=== PATIENT | male | born 1945 ===

== ENCOUNTER 2020-12-11 12:07 | Inpatient (IN) | payer OTHER ==
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
--- OUTSIDE RECORDS SUMMARY | 2020-12-12 18:03 | XMS REPORT | Continuity of Care Document ---
:1945 Author Organization [facility] t Address [address] [place] [address] Care Team Providers Name Role Phone Unavailable Unavailable Unavailable Problems This patient has no known problems. Allergies, Adverse Reactions, Alerts This patient has no known allergies or adverse reactions. Medications This patient has no known medications. Procedures This patient has no known procedures. Encounters Start End Encounter Admission Attending Care Care Encounter Source Date/Time Date/Time Type Type Clinicians Facility Department ID 2020-12-05 Inpatient E [facility] [id number] [facility] 12:52:00 Results This patient has no known results.
[2020-12-12 18:13] VITALS: BMI 33.4
[2020-12-12] MEDS: ATORVASTATIN 40 MG TAB PO SCH (19:21)
[2020-12-12] MEDS: MELATONIN 3 MG TABLET PO PRN (19:21)
[2020-12-13 07:00] LABS: Absolute Lymphocytes (CBC) 1.5 K/uL (0.7-4.9); Basophils % 0.6 % (0-1.3); Hematocrit 38.1 % (39.6-49.0); Lymphocytes % 17.8 % (15.3-44.8); MPV 8.8 fL (7.6-11.3); RBC Red Blood Cell Count 4.34 M/uL (4.33-5.43)
[2020-12-13 07:22] LABS: Albumin 3.3 g/dL (3.4-5.0); Magnesium 2.1 mg/dL (1.8-2.4); Potassium 4.5 mmol/L (3.5-5.1); Prealbumin 26.9 mg/dL (20-40)
[2020-12-13] MEDS ORDERED: LIDOCAINE 4% PATCH TOP SCH (08:00)
[2020-12-13] MEDS: lisinopriL 10 MG TAB PO SCH (08:00)
[2020-12-13] MEDS: ASPIRIN EC 81 MG TAB PO SCH (08:56)
--- NOTE | 2020-12-13 09:35 | P.RH.PN ---
Estimated Length of Stay: 21 Expected Discharge Date: 01/01/21 Discharge Disposition Plan: Home Family Support: Yes Intermediate Goal: Mobility, Transfers, Self Care Vital Signs: Last Vital Signs Temp 97.8 F 12/13/20 06:35 Pulse 60 12/13/20 06:35 Resp 16 12/13/20 06:35 BP 119/61 12/13/20 06:35 Pulse Ox 95 12/13/20 06:35 Laboratory: Laboratory Last Values WBC 8.20 K/uL (4.3-10.9) 12/13/20 06:44 RBC 4.34 M/uL (4.33-5.43) 12/13/20 06:44 Hgb 13.1 g/dL (13.6-17.9) L 12/13/20 06:44 Hct 38.1 % (39.6-49.0) L 12/13/20 06:44 MCV 87.7 fL (80-100) 12/13/20 06:44 MCH 30.2 pg (27.0-35.0) 12/13/20 06:44 MCHC 34.4 g/dL (32.0-36.0) 12/13/20 06:44 RDW 14.2 % (12.1-15.2) 12/13/20 06:44 Plt Count 166 K/uL (152-406) 12/13/20 06:44 MPV 8.8 fL (7.6-11.3) 12/13/20 06:44 Neutrophils % 71.3 % (41.7-73.7) 12/13/20 06:44 Lymphocytes % 17.8 % (15.3-44.8) 12/13/20 06:44 Monocytes % 8.8 % (3.3-12.3) 12/13/20 06:44 Eosinophils % 1.5 % (0-4.4) 12/13/20 06:44 Basophils % 0.6 % (0-1.3) 12/13/20 06:44 Absolute Neutrophils 5.8 K/uL (1.8-8.0) 12/13/20 06:44 Absolute Lymphocytes 1.5 K/uL (0.7-4.9) 12/13/20 06:44 Absolute Monocytes 0.7 K/uL (0.1-1.3) 12/13/20 06:44 Absolute Eosinophils 0.1 K/uL (0-0.5) 12/13/20 06:44 Absolute Basophils 0.0 K/uL (0-0.5) 12/13/20 06:44 Sodium 136 mmol/L (136-145) 12/13/20 06:44 Potassium 4.5 mmol/L (3.5-5.1) 12/13/20 06:44 Chloride 106 mmol/L (98-107) 12/13/20 06:44 Carbon Dioxide 26 mmol/L (21-32) 12/13/20 06:44 BUN 21 mg/dL (7-18) H 12/13/20 06:44 Creatinine 0.97 mg/dL (0.55-1.3) 12/13/20 06:44 Estimated GFR 76 mL/min (=/>90) L 12/13/20 06:44 Glucose 96 mg/dL (74-106) 12/13/20 06:44 Calcium 8.8 mg/dL (8.5-10.1) 12/13/20 06:44 Magnesium 2.1 mg/dL (1.8-2.4) 12/13/20 06:44 Albumin 3.3 g/dL (3.4-5.0) L 12/13/20 06:44 Prealbumin 26.9 mg/dL (20-40) 12/13/20 06:44 SARS-CoV-2 RNA (RT-PCR) Negative (NEGATIVE) 12/12/20 20:45 Weight: 220 lb Wound Present: No Physician Update: Blood work is pending. He has marked left arm and leg weakness. He has very poor truncal control. He requires max assistance for all ADL, transfers and mobilzation. He has mechanical soft diet and will get speech therapy. Summary: Patient's care plan and retirement goals have been reviewed and revised as necessary. Please see the Rehabilitation Signature page for all necessary signatures.
[2020-12-13] MEDS: ACETAMINOPHEN 500 MG TAB PO PRN ×2 (12:11→20:33)
--- NOTE | 2020-12-13 13:06 | PAPE ---
POST ADMISSION PHYSICIAN EVALUATION PATIENT: [facility] MR# [id number] REFERRING DOCTOR madeline Horton EVALUATION DATE AND TIME 12/13/2020 13:05 (CDT) NAME NIKHIL RICK DATE OF 1945 AGE 75 PHONE ( SSN# [id number] GENDER male EVALUATING PHYSICIAN Dr. Leonel Schmitz M.D. ADMISSION DIAGNOSIS: ACUTE ISCHEMIC RIGHT MCA STROKE ONSET DATE 12/05/2020 POST-ADMISSION FUNCTIONAL/MEDICAL STATUS: - Bladder Same accident frequency: 7-Ind - No accidents in the past 7 days - Bowel Same accident frequency: 7-Ind - No accidents in the past 7 days - Walking Same score based on distance walked: 0(N/A) - Wheelchair Same score based on distance traveled: 0(N/A) STATUS CHANGE EVALUATION: No change in Functional or Medical Status is identified compared with Pre-Admission screening. PATIENT NEEDS CLOSE MEDICAL SUPERVISION BY A REHABILITATION PHYSICIAN FOR: Coordination of Treatment Team PATIENT REQUIRES 24X7 REHAB NURSING FOR MEDICAL AND FUNCTIONAL MGT. OF THE FOLLOWING DEFICITS: Disease Management Medication Management Patient/Family Education Providing Safe Environment PATIENT REQUIRES INTENSIVE, COORDINATED INTERDISCIPLINARY APPROACH TO REHAB: Arranging Home Equipment/Services Discharge Planning Family Intervention/Training Bailiff/Case Management LIST OF IDENTIFIED AND POTENTIAL PROBLEMS: Alteration in leisure activities Bladder, Incontinence Bowel, Incontinence Infection, Actual or Potential Mobility Impaired Pain, Alteration in Comfort Self Care Deficit Skin Integrity, Actual or Potential Urinary Tract Infection (UTI), Actual or Potential PATIENT COULD BE AT RISK FOR COMPLICATIONS FROM ADVERSE MEDICAL CONDITIONS DUE TO HIS/HER COMORBIDITI ES AND THE RIGORS OF THE INTENSIVE REHABILLITATION PROGRAM. METHODS OR INTERVENTIONS TO AVOID COMPLIC ATIONS INCLUDE: - Bleeding Stroke patients assessed for lethargy or change in status. - Infection Clinical staff to assess and manage the signs and symptoms of infection including fever, redness, war mth, etc. - Urinary Tract Infection - Aspiration Clinical staff will assess and manage coughing, drooling, congestion. - Falls Patient will be evaluated for Fall Precautions and will be placed on Fall Precautions as indicated pe r protocol. - Skin Breakdown Nursing will assess skin daily using assessment tool and will place on Skin Breakdown Precautions as indicated per protocol. - Pain Clinical staff may employ non-medication methods such as massage, distraction, decrease stimulus, etc . as needed. Clinical staff will assess patient's pain level every shift per protocol to assess and e nsure pain management effectiveness. Medications will be given and the pain level re-assessed. PRELIMINARY PLAN OF CARE: - Physical Therapy Patient needs Physical Therapy for a daily minimum of 1.5 hours at least 5 out of 7 days, to improve: Mobility, Strengthening, Transfers, Stretching, ROM, Endurance, Ability to manage stairs, Gait, and Balance. - Speech Therapy Patient needs Speech Therapy for a daily minimum of 0.5 hours at least 5 out of 7 days, to improve: S wallowing, Cognition, Language Skills, and Compensatory Strategies. - Rehabilitation Nursing Patient requires 24x7 Rehabilitation Nursing for: Pain Issues, Identifying and preventing risk factor s, Monitoring and reporting current medical conditions, Assisting with ambulation and transfer, Idris ting with all ADL-s, Teaching patients about disease process and medications, Family teaching, Provid ing safe environment, Bowel and Bladder Issues, Skin Integrity, and Medication Management. Patient needs Bailiff and/or Case Management for: Discharge Planning, Arranging Home Equipmen t or Services, and Family Interventions. - Dietary and Nutrition Services Patient needs Dietary and Nutrition Services for: Adequate Nutrition, Nutritional Supplements, and Nu tritional Education. - Occupational Therapy Patient needs Occupational Therapy for a daily minimum of 1.5 hours at least 5 out of 7 days, to impr ove Activities of Daily Living, including: Eating, Grooming, Bathing, Dressing, Toileting, Toilet Tra nsfers, Community Reintegration, Higher functional activities, Adaptive Equipment, Splinting, Househo ld Tasks, and Other activities as determined. QI SCORES: - Self-Care A. Eating 03-Partial/moderate assistance B. Oral hygiene 03-Partial/moderate assistance C. Toileting hygiene 02-Substantial/maximal assistance E. Shower/bathe self 02-Substantial/maximal assistance F. Upper body dressing 03-Partial/moderate assistance G. Lower body dressing 02-Substantial/maximal assistance H. Putting on/taking off footwear 88-Not attempted due to medical condition or safety concerns - Mobility A. Roll left and right 03-Partial/moderate assistance B. Sit to lying 03-Partial/moderate assistance C. Lying to sitting on side of bed 02-Substantial/maximal assistance D. Sit to stand 02-Substantial/maximal assistance E. Chair/aoz-qu-oybsl transfer 02-Substantial/maximal assistance F. Toilet transfer 02-Substantial/maximal assistance G. Car transfer 88-Not attempted due to medical condition or safety concerns I. Walk 10 feet 88-Not attempted due to medical condition or safety concerns J. Walk 50 feet with two turns 88-Not attempted due to medical condition or safety concerns K. Walk 150 feet 88-Not attempted due to medical condition or safety concerns L. Walking 10 feet on uneven surfaces 88-Not attempted due to medical condition or safety concerns M. 1 step (curb) 88-Not attempted due to medical condition or safety concerns N. 4 steps 88-Not attempted due to medical condition or safety concerns O. 12 steps 88-Not attempted due to medical condition or safety concerns P. Picking up object 88-Not attempted due to medical condition or safety concerns R. Wheel 50 feet with two turns 88-Not attempted due to medical condition or safety concerns S. Wheel 150 feet 88-Not attempted due to medical condition or safety concerns - Bladder and Bowel Bladder continence Bowel continence - Endurance Fair - Balance Fair - Safety Awareness Fair POTENTIAL FUNCTIONAL GOALS FOR PATIENT TO ACHIEVE BY DISCHARGE: - Safety Precaution Patient will remain free from falls or injury at time of discharge. - Bed Mobility Patient will perform bed mobility at 4-Nakia level of assistance. - Transfers Patient will complete transfers from bed to chair at 4-Nakia level of assistance. - Mobility Patient will ambulate 150 ft with 4-Nakia level of assistance with RW. PATIENT REHAB POTENTIAL All RICK is able and expected to receive 3 hours of individualized therapy daily on at least 5 of irwin ry 7 days All Blue prognosis for significant practical improvement within a reasonable period of time appears Good Expected level of measurable improvement will be of a practical value to All RICK's functional capaci ty or adaptations to impairments Has a viable Discharge Plan Medically appropriate; condition is sufficiently stable to participate in intensive rehab program DISCHARGE PLAN: - Estimated Length of Stay (days) 17. - Consensus on plan Discharge plan has been discussed with primary caregiver. Patient/Family is in agreement with the radha n. Primary caregiver is in agreement with the plan. - Patient/Family Goals Return home independently. - Planned Living Setting Upon Discharge Home, to live alone. Transitional Living. Primary caregiver: Pt self. CONCLUSION ON REHABILITATION NECESSITY: I have evaluated patient's pre-admission functional status and, comparing it to the patient's post-ad mission functional status now, I conclude that the pre-admission assessment was accurate. Patient's c ondition on admission supports the medical necessity of admission to IRF. It is safe to proceed with patient's therapy program. SIGNATURE PANEL: (CDT)
--- NOTE | 2020-12-13 13:06 | R.HP ---
HISTORY AND PHYSICAL FACILITY: [facility] ENCOUNTER DATE AND TIME: 12/13/2020 12:57 (CDT) MR#: [id number] NAME NIKHIL RICK ADDRESS: [address] [place] [address] CITY: [facility] [address]IP [id number] PHONE: ( DATE OF : 1945 AGE: 75 SSN# [id number] GENDER: Male MARITAL STATUS PRE-HOSPITAL LIVING SETTING 01 - Home (private home/apt. board/care, assisted living, mcc, transitional living) PRE-HOSPITAL LIVING WITH Alone ENCOUNTER PHYSICIAN: Dr. Leonel Schmitz M.D. REFERRING DOCTOR: madeline Horton DATE OF ADMISSION: 12/12/2020 17:59 (CDT) REFERRING FACILITY [facility] HOME TYPE AND DETAILS: Type of home: single family house # of steps within the residence: 0 # of levels in the residence: 1 # of steps to enter the residence: 0 ONSET DATE: 12/05/2020 PRIMARY DIAGNOSIS-RELATED SURGERIES: CEREBRAL ANGIOGRAM HISTORY OF PRESENT ILLNESS (HPI): Pt. is a 75 yo Right-handed male. On 12/05/2020 Pt. presented to [facility] with sudden onset of right-side weakness. On 12/05/2020 he was admitted to [facility] with diagnosis ACUTE ISCHEMIC RIGHT MCA STROKE. His impairment category is Stroke 01 - Right Body (Left Brain) (01.2). Pre-morbidly, Pt. was independent/mod-I in Locomotion, Safety Awareness, Self-Care, and Communication ; and he had good Endurance and Social Cognition. Currently, he has deficits of Locomotion, Safety Awareness, Balance, Transfers Control, Sphincter Con trol, Self-Care, Communication, and Endurance. Pt. is now referred to [facility] for acute in-patient rehabilitation in order to maximize patient's functional independence in activities of daily living, strength, ROM, and mobi lity. Patient has realistic goal of being discharged at assistance level 7-Ind to reside at Home with Pt s elf. MEDICATION ALLERGIES: No Known Drug Allergies (NKDA) ENVIRONMENTAL ALLERGIES: - Substance Allergies None Known - Other Allergies None Known SOCIAL HISTORY: - Home Living Alone REVIEW OF SYSTEMS: - Gen No Chills Fatigue No Fever - Eyes No Double Vision No itchiness - ENMT Difficulty Swallowing - CVS No Chest Discomfort No Chest Pain Fatigue No Weight Gain - Resp No Cough No Shortness of Breath - GI Continent Abdominal Pain No Constipation No Diarrhea - Continent No Kidney Pain No Painful Urination No Urinary Urgency - MSK No Joint Pain Muscle Cramps Stiffness - Skin No Itching No Rash No Suspicious Lesions - Neuro Coordination Difficulty Difficulty with Concentration No Memory Loss No Seizures Weakness - Psych Anxiety Depression No HIV Exposure No Persistent Infections No Seasonal Allergies - Endo No Cold/Heat Intolerance No Excessive Hunger No Excessive Thirst No Excessive Urination PHYSICAL EXAM - Gen Alert and awake Lying in bed No apparent distress Oriented to: person, time, and place - Skin No breakdown Normacephalic - Eyes No abnormalities - ENMT No abnormalities - Neck No abnormalities - CVS RRR - Chest Clear - Abd Mild shifting right mid quadrant pain. No guarding or rebound. - GI Soft Deferred - No abnormalities - Ext Mild left upper and lower extremity edema. - MSK 0-1+/5 weakness in left upper and lower extremity. - Neuro 0-1/5 strength left upper and lower extremities. - Psych Mild depression. VITAL SIGNS Temperature: 97.8 F SBP/DBP: 108/63 Pulse: 72 Resp: 15 NURSING: - Shower allowing shower - Bladder care per protocol - Skin care per protocol PRECAUTIONS: - Weight Bearing Precaution WBAT left LE ACTIVITIES OOB only with supervision QI SCORES: - Self-Care A. Eating 03-Partial/moderate assistance B. Oral hygiene 03-Partial/moderate assistance C. Toileting hygiene 02-Substantial/maximal assistance E. Shower/bathe self 02-Substantial/maximal assistance F. Upper body dressing 03-Partial/moderate assistance G. Lower body dressing 02-Substantial/maximal assistance H. Putting on/taking off footwear 88-Not attempted due to medical condition or safety concerns - Mobility A. Roll left and right 03-Partial/moderate assistance B. Sit to lying 03-Partial/moderate assistance C. Lying to sitting on side of bed 02-Substantial/maximal assistance D. Sit to stand 02-Substantial/maximal assistance E. Chair/[id number] transfer 02-Substantial/maximal assistance F. Toilet transfer 02-Substantial/maximal assistance G. Car transfer 88-Not attempted due to medical condition or safety concerns I. Walk 10 feet 88-Not attempted due to medical condition or safety concerns J. Walk 50 feet with two turns 88-Not attempted due to medical condition or safety concerns K. Walk 150 feet 88-Not attempted due to medical condition or safety concerns L. Walking 10 feet on uneven surfaces 88-Not attempted due to medical condition or safety concerns M. 1 step (curb) 88-Not attempted due to medical condition or safety concerns N. 4 steps 88-Not attempted due to medical condition or safety concerns O. 12 steps 88-Not attempted due to medical condition or safety concerns P. Picking up object 88-Not attempted due to medical condition or safety concerns R. Wheel 50 feet with two turns 88-Not attempted due to medical condition or safety concerns S. Wheel 150 feet 88-Not attempted due to medical condition or safety concerns - Bladder and Bowel Bladder continence Bowel continence - Endurance Fair - Balance Fair - Safety Awareness Fair CURRENT FUNC. DEFICITS: Self-Care, Mobility, Endurance, Balance, and Safety Awareness MEDICATIONS: - Other See attached MAR (Medication Administration Record) ASSESSMENT: Pt. is a 75 yo Right-handed male.On 12/05/2020 Pt. presented to [facility] with sudden onset of right-side weakness.On 12/05/2020 he was admitted to [facility] with diagnosis ACUTE ISCHEMIC RIGHT MCA STROKE.His impairment category is Stroke 01 - Right Body (Left Brain) (01.2).Pre-morbidly , Pt. was independent/mod-I in Locomotion, Safety Awareness, Self-Care, and Communication; and he had good Endurance and Social Cognition.Currently, he has deficits of Locomotion, Safety Awareness, [place] nce, Transfers Control, Sphincter Control, Self-Care, Communication, and Endurance.Pt. is now referre d to [facility] for acute in-patient rehabilitation in order to maximize patie nt's functional independence in activities of daily living, strength, ROM, and mobility.- Rehab Goal Patient has realistic goal of being discharged at assistance level 7-Ind to reside at Home with Pt s elf. for Dementia, TBI, Stroke, or others - Physical Therapy Gait dysfunction - to improve, our physical therapists will perform initial evaluation of pt's status upon admission and devise an individualized program for Gait Training, and Wheel Chair mobility Inability to transfer - to improve, our physical therapists will perform initial evaluation of pt's s tatus upon admission and devise an individualized program for Bed mobility Need for home safety evaluation - to improve, our physical therapists will perform initial evaluation of pt's status upon admission and devise an individualized program for Home Evaluation Need in caregiver upon discharge - to improve, our physical therapists will perform initial evaluatio n of pt's status upon admission and devise an individualized program for Caregiver Training New precaution - to improve, our physical therapists will perform initial evaluation of pt's status u vasiliy admission and devise an individualized program for Patient precaution education Edema - to improve, our physical therapists will perform initial evaluation of pt's status upon admi ssion and devise an individualized program for Elevation Training, and Lymphedema Therapy Poor balance - to improve, our physical therapists will perform initial evaluation of pt's status upo n admission and devise an individualized program for Balance Training Poor endurance - to improve, our physical therapists will perform initial evaluation of pt's status u vasiliy admission and devise an individualized program for Endurance Training Weakness - to improve, our physical therapists will perform initial evaluation of pt's status upon ad mission and devise an individualized program for Aquatic Therapy, Neuromuscular Reeducation, and Stre ngthening Achieving independence - to improve, our physical therapists will perform initial evaluation of pt's status upon admission and devise an individualized program for Community Reintegration Activities - Occupational Therapy ADL deficits - to improve, our occupation therapists will perform initial evaluation of pt's status u vasiliy admission and devise an individualized program for Bathing, Bed mobility, Community Reintegration , Cooking, Dressing, Eating, Fine Motor Skills, Grooming, Homemaking, Kitchen Mobility, Laundry, Margie ent Education, Safety Awareness, Splinting - Positioning, Transfers(Toilet, Tub, Shower), and Wheel C hair Management Need for care rep - to improve, our occupation therapists will perform initial evaluation of pt's s tatus upon admission and devise an individualized program for Caregiver Training Weakness - to improve, our occupation therapists will perform initial evaluation of pt's status upon admission and devise an individualized program for Aquatic Therapy, Balance, Endurance, UE ROM, and U E strengthening MEDICAL PLAN: - Diet Type Start Regular - Diet - Liquid Texture Start Regular - Tube Feed Start N/A - Bladder care per protocol - Weight Bearing Precaution WBAT left LE WBAT left wrist - Skin care per protocol - Other See attached MAR (Medication Administration Record) - Diet - Solid Texture Regular - Shower shower DISCHARGE PLAN: - Estimated Length of Stay (days) 17. - Consensus on plan Discharge plan has been discussed with primary caregiver. Patient/Family is in agreement with the radha n. Primary caregiver is in agreement with the plan. - Patient/Family Goals Return home independently. - Planned Living Setting Upon Discharge Home, to live alone. Transitional Living. Primary caregiver: Pt self. SIGNATURE PANEL: (CDT)
--- NOTE | 2020-12-13 13:36 | RAD REPORT ---
EXAM DESCRIPTION: RAD - Abdomen 1 View (KUB) - 12/13/2020 1:23 pm CLINICAL HISTORY: Abdomen pain. FINDINGS: The bowel gas pattern is unremarkable. Multiple calcifications the pelvis presumably phleboliths. Curvilinear densities overlying left pelvis presumably overlying artifact and should be correlated cl inically
[2020-12-13] MEDS ORDERED: ENOXAPARIN 40 MG/0.4 ML SQ SCH (17:00)
[2020-12-13] MEDS: DULOXETINE 20 MG CAP PO SCH (20:33)
[2020-12-13] MEDS: ATORVASTATIN 40 MG TAB PO SCH (20:33)
[2020-12-13] MEDS: MELATONIN 3 MG TABLET PO PRN (20:33)
[2020-12-13] MEDS: ENOXAPARIN 40 MG/0.4 ML SQ SCH (20:33)
[2020-12-14] MEDS: ACETAMINOPHEN 500 MG TAB PO PRN ×2 (04:33→09:52)
[2020-12-14] MEDS: SIMETHICONE 80 MG TAB PO PRN (04:33)
[2020-12-14] MEDS: lisinopriL 10 MG TAB PO SCH (08:00)
[2020-12-14] MEDS: ASPIRIN EC 81 MG TAB PO SCH (08:22)
[2020-12-14] MEDS: LIDOCAINE 4% PATCH TOP SCH (08:22)
--- NOTE | 2020-12-14 17:11 | CON ---
Date of Consultation: 12/14/2020 Reason For Consultation: Critical aortic valve stenosis. History Of Present Illness: A 75-year-old male who was brought into rehab from [facility] after having a significant stroke with significant left-sided weakness. Echo was ordered by Dr. Schmitz and kaycee ramirez. The patient appears to have critical aortic valve stenosis with a mean gradient above 55 mmHg . I had a long discussion with the patient and his family on the recommendations for treatment. Past Medical History: Recent stroke, hypertension. Medication: Refer to reconciliation sheet for detailed list. Allergies: NO KNOWN DRUG ALLERGIES. Family History: No premature coronary artery disease. Social History: Does not drink or use any drugs. Review of Systems: All systems reviewed and they were negative except what was mentioned in the HPI. Physical Examination: Vital Signs: Temperature is 98.4, pulse is 74, breathing at 18, blood pressure is 120/64, saturating 97% on room air. General: Pleasant elderly male, in no apparent distress. Head and Neck: Pupils are equal, reactive to light. Intact eye movements. No JVD. No cervical lym phadenopathy. Neck: Supple. Thyroid is not enlarged. Lungs: Clear to auscultation bilaterally. No rhonchi, rales, or crackles. No accessory muscle use. Heart: Regular rate and rhythm with aortic systolic ejection murmur. Abdomen: Soft, nontender. Bowel sounds positive. No organomegaly. No masses or hernia. No rigidi ty or rebound. Extremities: No edema, clubbing, or cyanosis. Intact pulses. Skin: No rashes. Neurologic: Alert, awake with left-sided significant weakness, but he is oriented x3. Investigations: Creatinine 0.97. Hemoglobin 15.1. Assessment And Plan: Critical aortic valve stenosis: The patient appears to have critical aortic va lve stenosis with mean gradient of 55 mmHg. I had a long discussion with the patient and his family. The patient will need to have aggressive rehab post stroke. I would recommend doing an aortic valv e replacement as soon as possible to avoid any complications or decompensation. The son will have a discussion with the family and if a decision was made to proceed, we will plan for possible transfer for a transcatheter aortic valve replacement and then aggressive rehab afterwards. Thank you for the consult. /LYLA Voice ID: [id number] Report ID: [id number]
--- NOTE | 2020-12-14 18:57 | R.PN ---
PROGRESS NOTES ENCOUNTER DATE AND TIME: 12/14/2020 18:45 (CDT) NAME NIKHIL RICK DATE OF : 1945 DATE OF ADMISSION: 12/12/2020 17:59 (CDT) ACUTE ISCHEMIC RIGHT MCA STROKECHIEF COMPLAINT: Right MCA stroke, dense left arm and leg paresis, critical aortic stenosis. SUBJECTIVE: Pt denied any Shortness of Breath. Pt denied any depression. He is followed closely by cardiology and will have a cardiac cath next week. WBC 8.2, Hgb 13.1, Trust Clerk 0.97, prealbumin 26.9, COVID-19 negative. KUB shows no obstruction. Therapeutic exercises done with the 0-1/5 strength left upper and lower extremities. Self propelled wheelchair 255' with max assistance. VITAL SIGNS Temperature: 97.6 F SBP/DBP: 112/57 Pulse: 63 Resp: 16 MEDICATION ALLERGIES: No Known Drug Allergies (NKDA) ENVIRONMENTAL ALLERGIES: - Substance Allergies None Known - Other Allergies None Known NURSING: - Shower allowing shower - Bladder care per protocol - Skin care per protocol PRECAUTIONS: - Weight Bearing Precaution WBAT left LE ACTIVITIES OOB only with supervision THERAPIES: - Occupational Therapy Cognitive Retraining. Visual Perceptual Training. - Dietary and Nutrition Adequate Nutrition. Nutritional Education. Nutritional Supplements. - Speech Therapy Cognitive Training. Expressive Language Skills. Memory Strategies. Receptive Language Skills. Speech Intelligibility Training. PHYSICAL EXAM - Gen Alert and awake Lying in bed No apparent distress Oriented to: person, time, and place - Skin No breakdown Normacephalic - Eyes No abnormalities - ENMT No abnormalities - Neck No abnormalities - CVS RRR - Chest Clear - Abd Mild shifting right mid quadrant pain. No guarding or rebound. - GI Soft Deferred - No abnormalities - Ext Mild left upper and lower extremity edema. - MSK 0-1+/5 weakness in left upper and lower extremity. - Neuro 0-1/5 strength left upper and lower extremities. - Psych Mild depression. ASSESSMENT: Pt. is a 75 yo Right-handed male.On 12/05/2020 Pt. presented to [facility] with sudden onset of right-side weakness.On 12/05/2020 he was admitted to [facility] with diagnosis ACUTE ISCHEMIC RIGHT MCA STROKE.His impairment category is Stroke 01 - Right Body (Left Brain) (01.2).Pre-morbidly , Pt. was independent/mod-I in Locomotion, Safety Awareness, Self-Care, and Communication; and he had good Endurance and Social Cognition.Currently, he has deficits of Locomotion, Safety Awareness, Stew nce, Transfers Control, Sphincter Control, Self-Care, Communication, and Endurance.Pt. is now referre d to [facility] for acute in-patient rehabilitation in order to maximize patie nt's functional independence in activities of daily living, strength, ROM, and mobility.- Rehab Goal Patient has realistic goal of being discharged at assistance level 7-Ind to reside at Home with Pt s elf. MDM/PLAN: - Physical Therapy Gait dysfunction - to improve, our physical therapists will perform initial evaluation of pt's statu s upon admission and devise an individualized program for Gait Training, and Wheel Chair mobility Inability to transfer - to improve, our physical therapists will perform initial evaluation of pt's status upon admission and devise an individualized program for Bed mobility Need for home safety evaluation - to improve, our physical therapists will perform initial evaluatio n of pt's status upon admission and devise an individualized program for Home Evaluation Need in caregiver upon discharge - to improve, our physical therapists will perform initial evaluati on of pt's status upon admission and devise an individualized program for Caregiver Training New precaution - to improve, our physical therapists will perform initial evaluation of pt's status upon admission and devise an individualized program for Patient precaution education Edema - to improve, our physical therapists will perform initial evaluation of pt's status upon admis aleksandra and devise an individualized program for Elevation Training, and Lymphedema Therapy Poor balance - to improve, our physical therapists will perform initial evaluation of pt's status up on admission and devise an individualized program for Balance Training Poor endurance - to improve, our physical therapists will perform initial evaluation of pt's status upon admission and devise an individualized program for Endurance Training Weakness - to improve, our physical therapists will perform initial evaluation of pt's status upon a dmission and devise an individualized program for Aquatic Therapy, Neuromuscular Reeducation, and Str engthening Achieving independence - to improve, our physical therapists will perform initial evaluation of pt's status upon admission and devise an individualized program for Community Reintegration Activities - Occupational Therapy ADL deficits - to improve, our occupation therapists will perform initial evaluation of pt's status upon admission and devise an individualized program for Bathing, Bed mobility, Community Reintegratio n, Cooking, Dressing, Eating, Fine Motor Skills, Grooming, Homemaking, Kitchen Mobility, Laundry, Pat ient Education, Safety Awareness, Splinting - Positioning, Transfers(Toilet, Tub, Shower), and Wheel Chair Management Need for critical care paramedic - to improve, our occupation therapists will perform initial evaluation of pt's status upon admission and devise an individualized program for Caregiver Training Weakness - to improve, our occupation therapists will perform initial evaluation of pt's status upon admission and devise an individualized program for Aquatic Therapy, Balance, Endurance, UE ROM, and UE strengthening - Other See attached MAR (Medication Administration Record) - Diet Type Continue Regular - Diet - Liquid Texture Continue Regular - Tube Feed Continue N/A - Bladder care per protocol - Weight Bearing Precaution WBAT left LE WBAT left wrist - Skin care per protocol - Diet - Solid Texture Continue Regular - Shower allowing shower for Dementia, TBI, Stroke, or others FUNCTIONAL STATUS: UPDATED AT WEEKLY TEAM CONFERENCE - Bladder Same accident frequency: 7-Ind - No accidents in the past 7 days - Bowel Same accident frequency: 7-Ind - No accidents in the past 7 days - Walking Same score based on distance walked: 0(N/A) - Wheelchair Same score based on distance traveled: 0(N/A) FUNCTIONAL STATUS: - Self-Care A. Eating sup B. Grooming Nakia C. Bathing modA D. Dressing - Upper modA E. Dressing - Lower modA F. Toileting maxA - Sphincter Control G. Bladder control Nakia H. Bowel control Nakia - Transfers Control I. Bed/Chair/Wheelchair maxA J. Toilet maxA K. Tub/Shower maxA - Locomotion L. Walk/Wheelchair (B) maxA M. Stairs ADNO - Communication N. Comprehension (B) sup O. Expression (B) sup - Social Cognition P. Social Interaction sup Q. Problem Solving sup R. Memory sup - Endurance Poor - Balance Poor - Safety Awareness Poor QI SCORES: - Self-Care A. Eating 03-Partial/moderate assistance B. Oral hygiene 03-Partial/moderate assistance C. Toileting hygiene 02-Substantial/maximal assistance E. Shower/bathe self 02-Substantial/maximal assistance F. Upper body dressing 03-Partial/moderate assistance G. Lower body dressing 02-Substantial/maximal assistance H. Putting on/taking off footwear 88-Not attempted due to medical condition or safety concerns - Mobility A. Roll left and right 03-Partial/moderate assistance B. Sit to lying 03-Partial/moderate assistance C. Lying to sitting on side of bed 02-Substantial/maximal assistance D. Sit to stand 02-Substantial/maximal assistance E. Chair/rnr-nv-fzbvy transfer 02-Substantial/maximal assistance F. Toilet transfer 02-Substantial/maximal assistance G. Car transfer 88-Not attempted due to medical condition or safety concerns I. Walk 10 feet 88-Not attempted due to medical condition or safety concerns J. Walk 50 feet with two turns 88-Not attempted due to medical condition or safety concerns K. Walk 150 feet 88-Not attempted due to medical condition or safety concerns L. Walking 10 feet on uneven surfaces 88-Not attempted due to medical condition or safety concerns M. 1 step (curb) 88-Not attempted due to medical condition or safety concerns N. 4 steps 88-Not attempted due to medical condition or safety concerns O. 12 steps 88-Not attempted due to medical condition or safety concerns P. Picking up object 88-Not attempted due to medical condition or safety concerns R. Wheel 50 feet with two turns 88-Not attempted due to medical condition or safety concerns S. Wheel 150 feet 88-Not attempted due to medical condition or safety concerns - Bladder and Bowel Bladder continence Bowel continence - Endurance Fair - Balance Fair - Safety Awareness Fair CURRENT [facility]. DEFICITS: Self-Care, Mobility, Endurance, Balance, and Safety Awareness SIGNATURE PANEL: (CDT)
[2020-12-14] MEDS: MELATONIN 3 MG TABLET PO PRN (20:14)
[2020-12-14] MEDS: ENOXAPARIN 40 MG/0.4 ML SQ SCH (20:14)
[2020-12-14] MEDS: ATORVASTATIN 40 MG TAB PO SCH (20:14)
[2020-12-14] MEDS: DULOXETINE 20 MG CAP PO SCH (20:14)
[2020-12-15] MEDS: lisinopriL 10 MG TAB PO SCH (07:57)
[2020-12-15] MEDS: ASPIRIN EC 81 MG TAB PO SCH (07:58)
[2020-12-15] MEDS: LIDOCAINE 4% PATCH TOP SCH (07:58)
[2020-12-15] MEDS ORDERED: D5 0.45 NS 1,000 ML IV SCH (15:00)
[2020-12-15] MEDS ORDERED: GUAIFENESIN/CODEINE 5ML UCUP PO PRN (19:48)
[2020-12-15] MEDS: ENOXAPARIN 40 MG/0.4 ML SQ SCH (20:48)
[2020-12-15] MEDS: MEGESTROL 40 MG TAB PO SCH (20:48)
[2020-12-15] MEDS: DULOXETINE 20 MG CAP PO SCH (20:48)
[2020-12-15] MEDS: guaiFENesin 100 MG/5 ML UCUP PO PRN (20:48)
[2020-12-15] MEDS: ATORVASTATIN 40 MG TAB PO SCH (20:48)
[2020-12-15] MEDS: MELATONIN 3 MG TABLET PO PRN (20:48)
[2020-12-15] MEDS ORDERED: GUAIFENESIN/CODEINE 5ML UCUP PO SCH (21:00)
[2020-12-16 07:24] LABS: Protime INR 1.32
[2020-12-16] MEDS: LIDOCAINE 4% PATCH TOP SCH (07:34)
[2020-12-16] MEDS: guaiFENesin 100 MG/5 ML UCUP PO PRN (07:54)
[2020-12-16] MEDS: MEGESTROL 40 MG TAB PO SCH ×2 (07:55→21:32)
[2020-12-16] MEDS: ASPIRIN EC 81 MG TAB PO SCH (07:55)
[2020-12-16] MEDS: lisinopriL 10 MG TAB PO SCH (08:00)
--- NOTE | 2020-12-16 08:14 | ECHO ---
HEIGHT: 5 ft 8 in WEIGHT: 220 lb 0 oz DATE OF STUDY: 12/13/[address]: Danilo Daniels MD 2-DIMENSIONAL: YES M.MODE: YES DOPPLER: YES COLOR FLOW: YES TDS: NO PORTABLE: NO DEFINITY: NO BUBBLE STUDY: NO DIAGNOSIS: POSSIBLE HEART CATH, STROKE CARDIAC HISTORY: CATHERIZATION: SURGERY: PROSTHETIC VALVE: PACEMAKER: MEASUREMENTS (cm) DIASTOLIC (NORMALS) SYSTOLIC (NORMALS) IVSd 1.5 (0.6-1.2) LA Diam (1.9-4.0) LVEF 60-65% LVIDd 4.3 (3.5-5.7) LVIDs 2.6 (2.0-3.5) %FS 40% LVPWd 1.6 (0.6-1.2) Ao Diam 2.5 (2.0-3.7) 2 DIMENSIONAL ASSESSMENT: RIGHT ATRIUM: NORMAL LEFT ATRIUM: NORMAL RIGHT VENTRICLE: NORMAL LEFT VENTRICLE: NORMAL TRICUSPID VALVE: MITRAL VALVE: PULMONIC VALVE: AORTIC VALVE: PERICARDIAL EFFUSION: NONE AORTIC ROOT: NORMAL LEFT VENTRICULAR WALL MOTION: NORMAL DOPPLER/COLOR FLOW: SEE BELOW COMMENTS: NORMAL LEFT VENTRICULAR EJECTION FRACTION 60-65% WITH NORMAL WALL MOTION. CRITICAL AORTIC VALVE STENOSIS. MILD MITRAL, TRICUSPID AND PULMONARY REGURGITATION. TECHNOLOGIST: Brandon GUALLPA
[2020-12-16] MEDS ORDERED: HEPA 1000U/500MLS 2,000 UNIT/1,000 ML BAG IV ONE (10:27)
[2020-12-16] MEDS ORDERED: FENTANYL CITR 100 MCG/2 ML ONE (15:54)
[2020-12-16] MEDS ORDERED: MIDAZOLAM HCL 2 MG/2 ML INJ ONE (15:54)
[2020-12-16] MEDS ORDERED: HEPARIN 10,000 UNIT/10 ML VIAL IV ONE (16:21)
[2020-12-16] MEDS ORDERED: VERAPAMIL HCL 10 MG/4 ML VIAL IV ONE (16:21)
[2020-12-16] MEDS ORDERED: HEPARIN 5000 UNIT/ML 1 ML VIAL ONE (16:21)
[2020-12-16] MEDS ORDERED: NITROGLYCERIN 100 MCG/ML SYR (for cath lab use only) IV ONE (16:22)
[2020-12-16] MEDS ORDERED: ATROPINE SULF 1 MG/10 ML SYR IV ONE (16:22)
[2020-12-16] MEDS ORDERED: NITROGLYCERIN/D5W 25 MG/250 ML BTL IV ONE (16:22)
[2020-12-16] MEDS ORDERED: NA CHLORIDE 0.9% 500 ML ONE (16:24)
[2020-12-16] MEDS ORDERED: LIDOCAINE 1% MPF 5 ML VIAL ONE (16:44)
[2020-12-16] MEDS ORDERED: LIDOCAINE 1% 20 ML MDV ONE (17:24)
--- NOTE | 2020-12-16 18:18 | R.PN ---
PROGRESS NOTES ENCOUNTER DATE AND TIME: 12/16/2020 18:14 (CDT) NAME NIKHIL RICK DATE OF : 1945 DATE OF ADMISSION: 12/12/2020 17:59 (CDT) ACUTE ISCHEMIC RIGHT MCA STROKECHIEF COMPLAINT: Right MCA stroke, dense left arm and leg paresis, critical aortic stenosis. SUBJECTIVE: Pt denied any Shortness of Breath. Pt denied any depression. He is followed closely by cardiology and will have a cardiac cath next week. INR-1.32, WBC 8.2, Hgb 13.1, Breakdown Man 0.97, prealbumin 26.9, COVID-19 negative. KUB shows no obstruction. Therapeutic exercises done with the 0-1/5 strength left upper and lower extremities while in bed. A cardiac cath is scheduled for today prior to additional workup for treatment of critical aortic beatris nosis. VITAL SIGNS Temperature: 97.4 F SBP/DBP: 110/50 Pulse: 64 Resp: 16 MEDICATION ALLERGIES: No Known Drug Allergies (NKDA) ENVIRONMENTAL ALLERGIES: - Substance Allergies None Known - Other Allergies None Known NURSING: - Shower allowing shower - Bladder care per protocol - Skin care per protocol PRECAUTIONS: - Weight Bearing Precaution WBAT left LE ACTIVITIES OOB only with supervision THERAPIES: - Occupational Therapy Cognitive Retraining. Visual Perceptual Training. - Dietary and Nutrition Adequate Nutrition. Nutritional Education. Nutritional Supplements. - Speech Therapy Cognitive Training. Expressive Language Skills. Memory Strategies. Receptive Language Skills. Speech Intelligibility Training. PHYSICAL EXAM - Gen Alert and awake Lying in bed No apparent distress Oriented to: person, time, and place - Skin No breakdown Normacephalic - Eyes No abnormalities - ENMT No abnormalities - Neck No abnormalities - CVS RRR - Chest Clear - Abd Mild shifting right mid quadrant pain. No guarding or rebound. - GI Soft Deferred - No abnormalities - Ext Mild left upper and lower extremity edema. - MSK 0-1+/5 weakness in left upper and lower extremity. - Neuro 0-1/5 strength left upper and lower extremities. - Psych Mild depression. ASSESSMENT: Pt. is a 75 yo Right-handed male.On 12/05/2020 Pt. presented to [facility] with sudden onset of right-side weakness.On 12/05/2020 he was admitted to [facility] with diagnosis ACUTE ISCHEMIC RIGHT MCA STROKE.His impairment category is Stroke 01 - Right Body (Left Brain) (01.2).Pre-morbidly , Pt. was independent/mod-I in Locomotion, Safety Awareness, Self-Care, and Communication; and he had good Endurance and Social Cognition.Currently, he has deficits of Locomotion, Safety Awareness, [place] nce, Transfers Control, Sphincter Control, Self-Care, Communication, and Endurance.Pt. is now referre d to [facility] for acute in-patient rehabilitation in order to maximize patie nt's functional independence in activities of daily living, strength, ROM, and mobility.- Rehab Goal Patient has realistic goal of being discharged at assistance level 7-Ind to reside at Home with Pt s elf. MDM/PLAN: - Physical Therapy Gait dysfunction - to improve, our physical therapists will perform initial evaluation of pt's statu s upon admission and devise an individualized program for Gait Training, and Wheel Chair mobility Inability to transfer - to improve, our physical therapists will perform initial evaluation of pt's status upon admission and devise an individualized program for Bed mobility Need for home safety evaluation - to improve, our physical therapists will perform initial evaluatio n of pt's status upon admission and devise an individualized program for Home Evaluation Need in caregiver upon discharge - to improve, our physical therapists will perform initial evaluati on of pt's status upon admission and devise an individualized program for Caregiver Training New precaution - to improve, our physical therapists will perform initial evaluation of pt's status upon admission and devise an individualized program for Patient precaution education Edema - to improve, our physical therapists will perform initial evaluation of pt's status upon admi ssion and devise an individualized program for Elevation Training, and Lymphedema Therapy Poor balance - to improve, our physical therapists will perform initial evaluation of pt's status up on admission and devise an individualized program for Balance Training Poor endurance - to improve, our physical therapists will perform initial evaluation of pt's status upon admission and devise an individualized program for Endurance Training Weakness - to improve, our physical therapists will perform initial evaluation of pt's status upon a dmission and devise an individualized program for Aquatic Therapy, Neuromuscular Reeducation, and Str engthening Achieving independence - to improve, our physical therapists will perform initial evaluation of pt's status upon admission and devise an individualized program for Community Reintegration Activities - Occupational Therapy ADL deficits - to improve, our occupation therapists will perform initial evaluation of pt's status upon admission and devise an individualized program for Bathing, Bed mobility, Community Reintegratio n, Cooking, Dressing, Eating, Fine Motor Skills, Grooming, Homemaking, Kitchen Mobility, Laundry, Pat ient Education, Safety Awareness, Splinting - Positioning, Transfers(Toilet, Tub, Shower), and Wheel Chair Management Need for adult day care worker - to improve, our occupation therapists will perform initial evaluation of pt's status upon admission and devise an individualized program for Caregiver Training Weakness - to improve, our occupation therapists will perform initial evaluation of pt's status upon admission and devise an individualized program for Aquatic Therapy, Balance, Endurance, UE ROM, and UE strengthening - Other See attached MAR (Medication Administration Record) - Diet Type Continue Regular - Diet - Liquid Texture Continue Regular - Tube Feed Continue N/A - Bladder care per protocol - Weight Bearing Precaution WBAT left LE WBAT left wrist - Skin care per protocol - Diet - Solid Texture Continue Regular - Shower allowing shower for Dementia, TBI, Stroke, or others FUNCTIONAL STATUS: UPDATED AT WEEKLY TEAM CONFERENCE - Bladder Same accident frequency: 7-Ind - No accidents in the past 7 days - Bowel Same accident frequency: 7-Ind - No accidents in the past 7 days - Walking Same score based on distance walked: 0(N/A) - Wheelchair Same score based on distance traveled: 0(N/A) FUNCTIONAL STATUS: - Self-Care A. Eating sup B. Grooming Nakia C. Bathing modA D. Dressing - Upper modA E. Dressing - Lower modA F. Toileting maxA - Sphincter Control G. Bladder control Nakia H. Bowel control Nakia - Transfers Control I. Bed/Chair/Wheelchair maxA J. Toilet maxA K. Tub/Shower maxA - Locomotion L. Walk/Wheelchair (B) maxA M. Stairs ADNO - Communication N. Comprehension (B) sup O. Expression (B) sup - Social Cognition P. Social Interaction sup Q. Problem Solving sup R. Memory sup - Endurance Poor - Balance Poor - Safety Awareness Poor QI SCORES: - Self-Care A. Eating 03-Partial/moderate assistance B. Oral hygiene 03-Partial/moderate assistance C. Toileting hygiene 02-Substantial/maximal assistance E. Shower/bathe self 02-Substantial/maximal assistance F. Upper body dressing 03-Partial/moderate assistance G. Lower body dressing 02-Substantial/maximal assistance H. Putting on/taking off footwear 88-Not attempted due to medical condition or safety concerns - Mobility A. Roll left and right 03-Partial/moderate assistance B. Sit to lying 03-Partial/moderate assistance C. Lying to sitting on side of bed 02-Substantial/maximal assistance D. Sit to stand 02-Substantial/maximal assistance E. Chair/kzl-[id number] transfer 02-Substantial/maximal assistance F. Toilet transfer 02-Substantial/maximal assistance G. Car transfer 88-Not attempted due to medical condition or safety concerns I. Walk 10 feet 88-Not attempted due to medical condition or safety concerns J. Walk 50 feet with two turns 88-Not attempted due to medical condition or safety concerns K. Walk 150 feet 88-Not attempted due to medical condition or safety concerns L. Walking 10 feet on uneven surfaces 88-Not attempted due to medical condition or safety concerns M. 1 step (curb) 88-Not attempted due to medical condition or safety concerns N. 4 steps 88-Not attempted due to medical condition or safety concerns O. 12 steps 88-Not attempted due to medical condition or safety concerns P. Picking up object 88-Not attempted due to medical condition or safety concerns R. Wheel 50 feet with two turns 88-Not attempted due to medical condition or safety concerns S. Wheel 150 feet 88-Not attempted due to medical condition or safety concerns - Bladder and Bowel Bladder continence Bowel continence - Endurance Fair - Balance Fair - Safety Awareness Fair CURRENT [facility]. DEFICITS: Self-Care, Mobility, Endurance, Balance, and Safety Awareness SIGNATURE PANEL: (CDT)
[2020-12-16] MEDS: ENOXAPARIN 40 MG/0.4 ML SQ SCH ×2 (21:00→21:33)
[2020-12-16] MEDS: ATORVASTATIN 40 MG TAB PO SCH (21:32)
[2020-12-16] MEDS: DULOXETINE 20 MG CAP PO SCH (21:32)
--- NOTE | 2020-12-16 21:54 | OP ---
Date of Procedure: 12/16/2020 Surgeon: NIMESH SOLO Procedure Performed: Selective coronary angiogram. Indication For Procedure: Severe aortic valve stenosis. Access: Right radial artery 6-[place] closed with TR band. Complications: None. Bleeding: Less than 10 mL. Description Of Procedure: After risks, benefits, and alternatives were explained, the patient agreed to proceed and signed informed consent. The patient was brought into the cardiac catheterization la boratory, prepped and draped in usual sterile fashion. Then, we accessed right radial artery using p [place] [employer] micropuncture kit and placed a 6-[place] slender sheath and took a 5-[place] 4.0 cathete r into the aortic root, engaged left main and right coronary artery and took standard views, and then had to exchange for a left 6-[place] 3.5 guide to engage the left main, take better pictures. In the right radial, there was a loop in the elbow, which we used a run-through wire to go through and ther e was significant spasm, however, we were able to complete the procedure. After we took standard vie ws, catheter was removed, sheath was removed, and placed TR band with good hemostasis. Findings: 1.Left main is large and normal. 2.LAD, large vessel with a mid 70% to 80% stenosis at the bifurcation of the diagonal. 3.The left circumflex is normal. 4.RCA, small with a proximal 30% stenosis. Conclusion: Severe mid LAD stenosis. Plan: PCI of the LAD in [place] prior to TAVR. SR/MODL Voice ID: [id number] Report ID: [id number]
[2020-12-17] MEDS: ACETAMINOPHEN 500 MG TAB PO PRN (06:11)
[2020-12-17] MEDS: LIDOCAINE 4% PATCH TOP SCH (06:12)
[2020-12-17] MEDS: guaiFENesin 100 MG/5 ML UCUP PO PRN ×3 (07:50→19:20)
[2020-12-17] MEDS: MEGESTROL 40 MG TAB PO SCH ×2 (07:50→19:20)
[2020-12-17] MEDS: ASPIRIN EC 81 MG TAB PO SCH (07:51)
[2020-12-17] MEDS: lisinopriL 10 MG TAB PO SCH (08:00)
--- NOTE | 2020-12-17 17:40 | R.PN ---
PROGRESS NOTES ENCOUNTER DATE AND TIME: 12/17/2020 17:32 (CDT) NAME NIKHIL RICK DATE OF : 1945 DATE OF ADMISSION: 12/12/2020 17:59 (CDT) ACUTE ISCHEMIC RIGHT MCA STROKECHIEF COMPLAINT: Right MCA stroke, dense left arm and leg paresis, critical aortic stenosis. SUBJECTIVE: Pt denied any Shortness of Breath. Pt denied any depression. He is followed closely by cardiology and will have a cardiac cath next week. INR-1.32, WBC 8.2, Hgb 13.1, Regulatory Agency Director 0.97, prealbumin 26.9, COVID-19 negative. KUB shows no obstruction. Patient states that pain is under control. A cardiac cath is scheduled for today prior to additional workup for treatment of critical aortic beatris nosis. Cardiac Cath showed severe mid LAD stenosis. Bed mobility exercises done with the right upper extremity. S/P cardiac cath and cannot use the right lower extremity for weight bearing. VITAL SIGNS Temperature: 97.0 F SBP/DBP: 119/71 Pulse: 66 Resp: 16 MEDICATION ALLERGIES: No Known Drug Allergies (NKDA) ENVIRONMENTAL ALLERGIES: - Substance Allergies None Known - Other Allergies None Known NURSING: - Shower allowing shower - Bladder care per protocol - Skin care per protocol PRECAUTIONS: - Weight Bearing Precaution WBAT left LE ACTIVITIES OOB only with supervision THERAPIES: - Occupational Therapy Cognitive Retraining. Visual Perceptual Training. - Dietary and Nutrition Adequate Nutrition. Nutritional Education. Nutritional Supplements. - Speech Therapy Cognitive Training. Expressive Language Skills. Memory Strategies. Receptive Language Skills. Speech Intelligibility Training. PHYSICAL EXAM - Gen Alert and awake Lying in bed No apparent distress Oriented to: person, time, and place - Skin No breakdown Normacephalic - Eyes No abnormalities - ENMT No abnormalities - Neck No abnormalities - CVS RRR - Chest Clear - Abd Mild shifting right mid quadrant pain. No guarding or rebound. - GI Soft Deferred - No abnormalities - Ext Mild left upper and lower extremity edema. - MSK 0-1+/5 weakness in left upper and lower extremity. - Neuro 0-1/5 strength left upper and lower extremities. - Psych Mild depression. ASSESSMENT: Pt. is a 75 yo Right-handed male.On 12/05/2020 Pt. presented to [facility] with sudden onset of right-side weakness.On 12/05/2020 he was admitted to [facility] with diagnosis ACUTE ISCHEMIC RIGHT MCA STROKE.His impairment category is Stroke 01 - Right Body (Left Brain) (01.2).Pre-morbidly , Pt. was independent/mod-I in Locomotion, Safety Awareness, Self-Care, and Communication; and he had good Endurance and Social Cognition.Currently, he has deficits of Locomotion, Safety Awareness, [place] nce, Transfers Control, Sphincter Control, Self-Care, Communication, and Endurance.Pt. is now referre d to [facility] for acute in-patient rehabilitation in order to maximize patie nt's functional independence in activities of daily living, strength, ROM, and mobility.- Rehab Goal Patient has realistic goal of being discharged at assistance level 7-Ind to reside at Home with Pt s elf. MDM/PLAN: - Physical Therapy Gait dysfunction - to improve, our physical therapists will perform initial evaluation of pt's statu s upon admission and devise an individualized program for Gait Training, and Wheel Chair mobility Inability to transfer - to improve, our physical therapists will perform initial evaluation of pt's status upon admission and devise an individualized program for Bed mobility Need for home safety evaluation - to improve, our physical therapists will perform initial evaluatio n of pt's status upon admission and devise an individualized program for Home Evaluation Need in caregiver upon discharge - to improve, our physical therapists will perform initial evaluati on of pt's status upon admission and devise an individualized program for Caregiver Training New precaution - to improve, our physical therapists will perform initial evaluation of pt's status upon admission and devise an individualized program for Patient precaution education Edema - to improve, our physical therapists will perform initial evaluation of pt's status upon admi ssion and devise an individualized program for Elevation Training, and Lymphedema Therapy Poor balance - to improve, our physical therapists will perform initial evaluation of pt's status up on admission and devise an individualized program for Balance Training Poor endurance - to improve, our physical therapists will perform initial evaluation of pt's status upon admission and devise an individualized program for Endurance Training Weakness - to improve, our physical therapists will perform initial evaluation of pt's status upon a dmission and devise an individualized program for Aquatic Therapy, Neuromuscular Reeducation, and Str engthening Achieving independence - to improve, our physical therapists will perform initial evaluation of pt's status upon admission and devise an individualized program for Community Reintegration Activities - Occupational Therapy ADL deficits - to improve, our occupation therapists will perform initial evaluation of pt's status upon admission and devise an individualized program for Bathing, Bed mobility, Community Reintegratio n, Cooking, Dressing, Eating, Fine Motor Skills, Grooming, Homemaking, Kitchen Mobility, Laundry, Pat ient Education, Safety Awareness, Splinting - Positioning, Transfers(Toilet, Tub, Shower), and Wheel Chair Management Need for wild animal caretaker - to improve, our occupation therapists will perform initial evaluation of pt's status upon admission and devise an individualized program for Caregiver Training Weakness - to improve, our occupation therapists will perform initial evaluation of pt's status upon admission and devise an individualized program for Aquatic Therapy, Balance, Endurance, UE ROM, and UE strengthening - Other See attached MAR (Medication Administration Record) - Diet Type Continue Regular - Diet - Liquid Texture Continue Regular - Tube Feed Continue N/A - Bladder care per protocol - Weight Bearing Precaution WBAT left LE WBAT left wrist - Skin care per protocol - Diet - Solid Texture Continue Regular - Shower allowing shower for Dementia, TBI, Stroke, or others FUNCTIONAL STATUS: UPDATED AT WEEKLY TEAM CONFERENCE - Bladder Same accident frequency: 7-Ind - No accidents in the past 7 days - Bowel Same accident frequency: 7-Ind - No accidents in the past 7 days - Walking Same score based on distance walked: 0(N/A) - Wheelchair Same score based on distance traveled: 0(N/A) FUNCTIONAL STATUS: - Self-Care A. Eating sup B. Grooming Nakia C. Bathing modA D. Dressing - Upper modA E. Dressing - Lower modA F. Toileting maxA - Sphincter Control G. Bladder control Nakia H. Bowel control Nakia - Transfers Control I. Bed/Chair/Wheelchair maxA J. Toilet maxA K. Tub/Shower maxA - Locomotion L. Walk/Wheelchair (B) maxA M. Stairs ADNO - Communication N. Comprehension (B) sup O. Expression (B) sup - Social Cognition P. Social Interaction sup Q. Problem Solving sup R. Memory sup - Endurance Poor - Balance Poor - Safety Awareness Poor QI SCORES: - Self-Care A. Eating 03-Partial/moderate assistance B. Oral hygiene 03-Partial/moderate assistance C. Toileting hygiene 02-Substantial/maximal assistance E. Shower/bathe self 02-Substantial/maximal assistance F. Upper body dressing 03-Partial/moderate assistance G. Lower body dressing 02-Substantial/maximal assistance H. Putting on/taking off footwear 88-Not attempted due to medical condition or safety concerns - Mobility A. Roll left and right 03-Partial/moderate assistance B. Sit to lying 03-Partial/moderate assistance C. Lying to sitting on side of bed 02-Substantial/maximal assistance D. Sit to stand 02-Substantial/maximal assistance E. Chair/vxw-[id number] transfer 02-Substantial/maximal assistance F. Toilet transfer 02-Substantial/maximal assistance G. Car transfer 88-Not attempted due to medical condition or safety concerns I. Walk 10 feet 88-Not attempted due to medical condition or safety concerns J. Walk 50 feet with two turns 88-Not attempted due to medical condition or safety concerns K. Walk 150 feet 88-Not attempted due to medical condition or safety concerns L. Walking 10 feet on uneven surfaces 88-Not attempted due to medical condition or safety concerns M. 1 step (curb) 88-Not attempted due to medical condition or safety concerns N. 4 steps 88-Not attempted due to medical condition or safety concerns O. 12 steps 88-Not attempted due to medical condition or safety concerns P. Picking up object 88-Not attempted due to medical condition or safety concerns R. Wheel 50 feet with two turns 88-Not attempted due to medical condition or safety concerns S. Wheel 150 feet 88-Not attempted due to medical condition or safety concerns - Bladder and Bowel Bladder continence Bowel continence - Endurance Fair - Balance Fair - Safety Awareness Fair [facility] DEFICITS: Self-Care, Mobility, Endurance, Balance, and Safety Awareness SIGNATURE PANEL: (CDT)
[2020-12-17] MEDS: ENOXAPARIN 40 MG/0.4 ML SQ SCH (19:18)
[2020-12-17] MEDS: ATORVASTATIN 40 MG TAB PO SCH (19:20)
[2020-12-17] MEDS: MELATONIN 3 MG TABLET PO PRN (19:21)
[2020-12-17] MEDS: DULOXETINE 20 MG CAP PO SCH (19:21)
[2020-12-18] MEDS: lisinopriL 10 MG TAB PO SCH (08:00)
[2020-12-18] MEDS: LIDOCAINE 4% PATCH TOP SCH (08:10)
[2020-12-18] MEDS: ASPIRIN EC 81 MG TAB PO SCH (08:10)
[2020-12-18] MEDS: MEGESTROL 40 MG TAB PO SCH ×2 (08:11→19:33)
--- NOTE | 2020-12-18 19:24 | PN ---
Date of Progress Note: 12/17/2020 Mr. Camacho had a heart catheterization by Dr. Chavez yesterday revealing significant LAD stenosis. He also has known critical aortic stenosis. Overnight, his entry site for the catheterization appeared to be intact without any hematoma and he has good distal pulses. He has no cardiac complaint. We w ill plan to do an LAD stent as well as TAVR in the next couple of weeks after 2 weeks of rehabilitati on. Continue present regimen. RADHA/LYLA Voice ID: [id number] Report ID: [id number]
[2020-12-18] MEDS: DULOXETINE 20 MG CAP PO SCH (19:33)
[2020-12-18] MEDS: MELATONIN 3 MG TABLET PO PRN (19:33)
[2020-12-18] MEDS: ENOXAPARIN 40 MG/0.4 ML SQ SCH (19:33)
[2020-12-18] MEDS: ATORVASTATIN 40 MG TAB PO SCH (19:33)
[2020-12-19 06:13] LABS: Absolute Lymphocytes (CBC) 1.4 K/uL (0.7-4.9); Basophils % 0.8 % (0-1.3); Hematocrit 37.9 % (39.6-49.0); Lymphocytes % 18.8 % (15.3-44.8); RBC Red Blood Cell Count 4.29 M/uL (4.33-5.43)
[2020-12-19 06:29] LABS: Albumin 2.5 g/dL (3.4-5.0); BUN Blood Urea Nitrogen 18 mg/dL (7-18); Bicarbonate 23 mmol/L (21-32); Glucose Level 99 mg/dL (74-106); Magnesium 1.9 mg/dL (1.8-2.4); Potassium 4.2 mmol/L (3.5-5.1); Sodium Level 134 mmol/L (136-145)
[2020-12-19] MEDS: ASPIRIN EC 81 MG TAB PO SCH (08:55)
[2020-12-19] MEDS: LIDOCAINE 4% PATCH TOP SCH (08:55)
[2020-12-19] MEDS: MEGESTROL 40 MG TAB PO SCH ×2 (08:55→19:50)
[2020-12-19] MEDS: lisinopriL 10 MG TAB PO SCH (10:33)
--- NOTE | 2020-12-19 18:34 | R.PN ---
PROGRESS NOTES ENCOUNTER DATE AND TIME: 12/19/2020 18:30 (CDT) NAME NIKHIL RICK DATE OF : 1945 DATE OF ADMISSION: 12/12/2020 17:59 (CDT) ACUTE ISCHEMIC RIGHT MCA STROKECHIEF COMPLAINT: Right MCA stroke, dense left arm and leg paresis, critical aortic stenosis. SUBJECTIVE: Pt denied any Shortness of Breath. Pt denied any depression. He is followed closely by cardiology and will have a cardiac cath next week. INR-1.32, WBC 7.4, Hgb 12.8, Manager [employer] 0.97, prealbumin 12.0, Na 134, COVID-19 negative. KUB shows no obstruction. Patient states that pain is under control. Cardiac Cath showed severe mid LAD stenosis. Bed mobility exercises done with the right upper extremity. S/P cardiac cath and cannot use the right lower extremity for weight bearing. Posterior propelled wheelchair 200' with resistance. VITAL SIGNS Temperature: 98.5 F SBP/DBP: 136/75 Pulse: 61 Resp: 16 MEDICATION ALLERGIES: No Known Drug Allergies (NKDA) ENVIRONMENTAL ALLERGIES: - Substance Allergies None Known - Other Allergies None Known NURSING: - Shower allowing shower - Bladder care per protocol - Skin care per protocol PRECAUTIONS: - Weight Bearing Precaution WBAT left LE ACTIVITIES OOB only with supervision THERAPIES: - Occupational Therapy Cognitive Retraining. Visual Perceptual Training. - Dietary and Nutrition Adequate Nutrition. Nutritional Education. Nutritional Supplements. - Speech Therapy Cognitive Training. Expressive Language Skills. Memory Strategies. Receptive Language Skills. Speech Intelligibility Training. PHYSICAL EXAM - Gen Alert and awake Lying in bed No apparent distress Oriented to: person, time, and place - Skin No breakdown Normacephalic - Eyes No abnormalities - ENMT No abnormalities - Neck No abnormalities - CVS RRR - Chest Clear - Abd Mild shifting right mid quadrant pain. No guarding or rebound. - GI Soft Deferred - No abnormalities - Ext Mild left upper and lower extremity edema. - MSK 0-1+/5 weakness in left upper and lower extremity. - Neuro 0-1/5 strength left upper and lower extremities. - Psych Mild depression. ASSESSMENT: Pt. is a 75 yo Right-handed male.On 12/05/2020 Pt. presented to [facility] with sudden onset of right-side weakness.On 12/05/2020 he was admitted to [facility] with diagnosis ACUTE ISCHEMIC RIGHT MCA STROKE.His impairment category is Stroke 01 - Right Body (Left Brain) (01.2).Pre-morbidly , Pt. was independent/mod-I in Locomotion, Safety Awareness, Self-Care, and Communication; and he had good Endurance and Social Cognition.Currently, he has deficits of Locomotion, Safety Awareness, [place] n[place], Transfers Control, Sphincter Control, Self-Care, Communication, and Endurance.Pt. is now referre d to [facility] for acute in-patient rehabilitation in order to maximize patie nt's functional independence in activities of daily living, strength, ROM, and mobility.- Rehab Goal Patient has realistic goal of being discharged at assistance level 7-Ind to reside at Home with Pt s elf. MDM/PLAN: - Physical Therapy Gait dysfunction - to improve, our physical therapists will perform initial evaluation of pt's statu s upon admission and devise an individualized program for Gait Training, and Wheel Chair mobility Inability to transfer - to improve, our physical therapists will perform initial evaluation of pt's status upon admission and devise an individualized program for Bed mobility Need for home safety evaluation - to improve, our physical therapists will perform initial evaluatio n of pt's status upon admission and devise an individualized program for Home Evaluation Need in caregiver upon discharge - to improve, our physical therapists will perform initial evaluati on of pt's status upon admission and devise an individualized program for Caregiver Training New precaution - to improve, our physical therapists will perform initial evaluation of pt's status upon admission and devise an individualized program for Patient precaution education Edema - to improve, our physical therapists will perform initial evaluation of pt's status upon admi ssion and devise an individualized program for Elevation Training, and Lymphedema Therapy Poor balance - to improve, our physical therapists will perform initial evaluation of pt's status up on admission and devise an individualized program for Balance Training Poor endurance - to improve, our physical therapists will perform initial evaluation of pt's status upon admission and devise an individualized program for Endurance Training Weakness - to improve, our physical therapists will perform initial evaluation of pt's status upon a dmission and devise an individualized program for Aquatic Therapy, Neuromuscular Reeducation, and Str engthening Achieving independence - to improve, our physical therapists will perform initial evaluation of pt's status upon admission and devise an individualized program for Community Reintegration Activities - Occupational Therapy ADL deficits - to improve, our occupation therapists will perform initial evaluation of pt's status upon admission and devise an individualized program for Bathing, Bed mobility, Community Reintegratio n, Cooking, Dressing, Eating, Fine Motor Skills, Grooming, Homemaking, Kitchen Mobility, Laundry, Pat ient Education, Safety Awareness, Splinting - Positioning, Transfers(Toilet, Tub, Shower), and Wheel Chair Management Need for landcare officer - to improve, our occupation therapists will perform initial evaluation of pt's status upon admission and devise an individualized program for Caregiver Training Weakness - to improve, our occupation therapists will perform initial evaluation of pt's status upon admission and devise an individualized program for Aquatic Therapy, Balance, Endurance, UE ROM, and UE strengthening - Other See attached MAR (Medication Administration Record) - Diet Type Continue Regular - Diet - Liquid Texture Continue Regular - Tube Feed Continue N/A - Bladder care per protocol - Weight Bearing Precaution WBAT left LE WBAT left wrist - Skin care per protocol - Diet - Solid Texture Continue Regular - Shower allowing shower for Dementia, TBI, Stroke, or others FUNCTIONAL STATUS: UPDATED AT WEEKLY TEAM CONFERENCE - Bladder Same accident frequency: 7-Ind - No accidents in the past 7 days - Bowel Same accident frequency: 7-Ind - No accidents in the past 7 days - Walking Same score based on distance walked: 0(N/A) - Wheelchair Same score based on distance traveled: 0(N/A) FUNCTIONAL STATUS: - Self-Care A. Eating sup B. Grooming Nakia C. Bathing modA D. Dressing - Upper modA E. Dressing - Lower modA F. Toileting maxA - Sphincter Control G. Bladder control Nakia H. Bowel control Nakia - Transfers Control I. Bed/Chair/Wheelchair maxA J. Toilet maxA K. Tub/Shower maxA - Locomotion L. Walk/Wheelchair (B) maxA M. Stairs ADNO - Communication N. Comprehension (B) sup O. Expression (B) sup - Social Cognition P. Social Interaction sup Q. Problem Solving sup R. Memory sup - Endurance Poor - Balance Poor - Safety Awareness Poor QI SCORES: - Self-Care A. Eating 03-Partial/moderate assistance B. Oral hygiene 03-Partial/moderate assistance C. Toileting hygiene 02-Substantial/maximal assistance E. Shower/bathe self 02-Substantial/maximal assistance F. Upper body dressing 03-Partial/moderate assistance G. Lower body dressing 02-Substantial/maximal assistance H. Putting on/taking off footwear 88-Not attempted due to medical condition or safety concerns - Mobility A. Roll left and right 03-Partial/moderate assistance B. Sit to lying 03-Partial/moderate assistance C. Lying to sitting on side of bed 02-Substantial/maximal assistance D. Sit to stand 02-Substantial/maximal assistance E. Chair/omi-la-jguzh transfer 02-Substantial/maximal assistance F. Toilet transfer 02-Substantial/maximal assistance G. Car transfer 88-Not attempted due to medical condition or safety concerns I. Walk 10 feet 88-Not attempted due to medical condition or safety concerns J. Walk 50 feet with two turns 88-Not attempted due to medical condition or safety concerns K. Walk 150 feet 88-Not attempted due to medical condition or safety concerns L. Walking 10 feet on uneven surfaces 88-Not attempted due to medical condition or safety concerns M. 1 step (curb) 88-Not attempted due to medical condition or safety concerns N. 4 steps 88-Not attempted due to medical condition or safety concerns O. 12 steps 88-Not attempted due to medical condition or safety concerns P. Picking up object 88-Not attempted due to medical condition or safety concerns R. Wheel 50 feet with two turns 88-Not attempted due to medical condition or safety concerns S. Wheel 150 feet 88-Not attempted due to medical condition or safety concerns - Bladder and Bowel Bladder continence Bowel continence - Endurance Fair - Balance Fair - Safety Awareness Fair [facility] DEFICITS: Self-Care, Mobility, Endurance, Balance, and Safety Awareness SIGNATURE PANEL: (CDT)
[2020-12-19] MEDS: ENOXAPARIN 40 MG/0.4 ML SQ SCH (19:49)
[2020-12-19] MEDS: MELATONIN 3 MG TABLET PO PRN (19:49)
[2020-12-19] MEDS: DULOXETINE 20 MG CAP PO SCH (19:50)
[2020-12-19] MEDS: ATORVASTATIN 40 MG TAB PO SCH (19:50)
[2020-12-20] MEDS: lisinopriL 5 MG TAB PO SCH (08:00)
[2020-12-20] MEDS ORDERED: lisinopriL 5 MG TAB PO SCH (08:00)
[2020-12-20] MEDS: guaiFENesin 100 MG/5 ML UCUP PO PRN (08:20)
[2020-12-20] MEDS: ASPIRIN EC 81 MG TAB PO SCH (08:21)
[2020-12-20] MEDS: MEGESTROL 40 MG TAB PO SCH ×2 (08:21→19:27)
[2020-12-20] MEDS: LIDOCAINE 4% PATCH TOP SCH (09:20)
--- NOTE | 2020-12-20 09:48 | P.RH.PN ---
Estimated Length of Stay: 23 Expected Discharge Date: 01/03/21 Discharge Disposition Plan: Home Family Support: Yes [facility] Goal: Mobility, Transfers, Self Care Vital Signs: Last Vital Signs Temp 98.4 F 12/20/20 09:36 Pulse 63 12/20/20 09:36 Resp 16 12/20/20 09:36 BP 109/69 12/20/20 09:36 Pulse Ox 95 12/20/20 09:36 Laboratory: Laboratory Last Values WBC 7.40 K/uL (4.3-10.9) 12/19/20 05:33 RBC 4.29 M/uL (4.33-5.43) L 12/19/20 05:33 Hgb 12.8 g/dL (13.6-17.9) L 12/19/20 05:33 Hct 37.9 % (39.6-49.0) L 12/19/20 05:33 MCV 88.3 fL (80-100) 12/19/20 05:33 MCH 29.7 pg (27.0-35.0) 12/19/20 05:33 MCHC 33.7 g/dL (32.0-36.0) 12/19/20 05:33 RDW 14.1 % (12.1-15.2) 12/19/20 05:33 Plt Count 164 K/uL (152-406) 12/19/20 05:33 MPV 9.0 fL (7.6-11.3) 12/19/20 05:33 Neutrophils % 69.0 % (41.7-73.7) 12/19/20 05:33 Lymphocytes % 18.8 % (15.3-44.8) 12/19/20 05:33 Monocytes % 10.4 % (3.3-12.3) 12/19/20 05:33 Eosinophils % 1.0 % (0-4.4) 12/19/20 05:33 Basophils % 0.8 % (0-1.3) 12/19/20 05:33 Absolute Neutrophils 5.1 K/uL (1.8-8.0) 12/19/20 05:33 Absolute Lymphocytes 1.4 K/uL (0.7-4.9) 12/19/20 05:33 Absolute Monocytes 0.8 K/uL (0.1-1.3) 12/19/20 05:33 Absolute Eosinophils 0.1 K/uL (0-0.5) 12/19/20 05:33 Absolute Basophils 0.1 K/uL (0-0.5) 12/19/20 05:33 PT 15.2 SECONDS (9.5-12.5) H 12/16/20 07:00 INR 1.32 12/16/20 07:00 APTT 30.6 SECONDS (24.3-36.9) 12/16/20 07:00 Sodium 134 mmol/L (136-145) L 12/19/20 05:53 Potassium 4.2 mmol/L (3.5-5.1) 12/19/20 05:53 Chloride 104 mmol/L (98-107) 12/19/20 05:53 Carbon Dioxide 23 mmol/L (21-32) 12/19/20 05:53 BUN 18 mg/dL (7-18) 12/19/20 05:53 Creatinine 0.79 mg/dL (0.55-1.3) 12/19/20 05:53 Estimated GFR > 90 mL/min (=/>90) 12/19/20 05:53 Glucose 99 mg/dL (74-106) 12/19/20 05:53 Calcium 8.7 mg/dL (8.5-10.1) 12/19/20 05:53 Magnesium 1.9 mg/dL (1.8-2.4) 12/19/20 05:53 Albumin 2.5 g/dL (3.4-5.0) L 12/19/20 05:53 Prealbumin 12.0 mg/dL (20-40) L 12/19/20 05:53 SARS-CoV-2 RNA (RT-PCR) Negative (NEGATIVE) 12/12/20 20:45 Weight: 220 lb Wound Present: No Closed Surgical Incision Present: Yes Negative Pressure Wound Therapy Present: No Physician Update: Labs reviewed and are stable. He is total assistance for transfers. His BP dropped to 102/59 with an attempt in the shower. His left hand pbx teacher is slightly better. He is depressed. He is max assistance with sliding board. He sits on the low mat table unassisted. He is followed by cardiology and will require LAD stent and TARV procedure. Summary: Patient's care plan and intermediate goals have been reviewed and revised as necessary. Please see the Rehabilitation Signature page for all necessary signatures.
[2020-12-20] MEDS ORDERED: ENSURE HIGH PROTEIN 237 ML CAN PO PRN (13:00)
[2020-12-20] MEDS ORDERED: POLYETHYL GLY 3350 17 GM/DOSE PO PRN (14:04)
[2020-12-20] MEDS ORDERED: DOCUSATE NA/SENNA CONC 1 TAB PO PRN (14:04)
[2020-12-20] MEDS: ATORVASTATIN 40 MG TAB PO SCH (19:26)
[2020-12-20] MEDS: ENOXAPARIN 40 MG/0.4 ML SQ SCH (19:27)
[2020-12-20] MEDS: MELATONIN 3 MG TABLET PO PRN (19:27)
[2020-12-20] MEDS: DULOXETINE 20 MG CAP PO SCH (19:27)
[2020-12-20] MEDS: ACETAMINOPHEN 500 MG TAB PO PRN (23:03)
[2020-12-21] MEDS: ACETAMINOPHEN 500 MG TAB PO PRN ×2 (05:18→19:48)
[2020-12-21] MEDS: LIDOCAINE 4% PATCH TOP SCH (07:04)
[2020-12-21] MEDS: ASPIRIN EC 81 MG TAB PO SCH (08:31)
[2020-12-21] MEDS: MEGESTROL 40 MG TAB PO SCH ×2 (08:31→19:18)
[2020-12-21] MEDS: lisinopriL 5 MG TAB PO SCH (08:32)
[2020-12-21] MEDS: ENOXAPARIN 40 MG/0.4 ML SQ SCH (19:18)
[2020-12-21] MEDS: DULOXETINE 20 MG CAP PO SCH (19:18)
[2020-12-21] MEDS: ATORVASTATIN 40 MG TAB PO SCH (19:18)
[2020-12-22] MEDS: ACETAMINOPHEN 500 MG TAB PO PRN ×2 (00:48→12:04)
[2020-12-22] MEDS: LIDOCAINE 4% PATCH TOP SCH (07:27)
[2020-12-22] MEDS: ASPIRIN EC 81 MG TAB PO SCH (08:25)
[2020-12-22] MEDS: lisinopriL 5 MG TAB PO SCH (08:26)
[2020-12-22] MEDS: MEGESTROL 40 MG TAB PO SCH ×2 (08:26→19:42)
[2020-12-22] MEDS: guaiFENesin 100 MG/5 ML UCUP PO PRN ×2 (10:44→19:42)
[2020-12-22] MEDS: ATORVASTATIN 40 MG TAB PO SCH (19:42)
[2020-12-22] MEDS: DULOXETINE 20 MG CAP PO SCH (19:42)
[2020-12-22] MEDS: ENOXAPARIN 40 MG/0.4 ML SQ SCH (19:42)
[2020-12-22] MEDS: MELATONIN 3 MG TABLET PO PRN (19:46)
[2020-12-22] MEDS: SIMETHICONE 80 MG TAB PO PRN (22:36)
[2020-12-23] MEDS: lisinopriL 5 MG TAB PO SCH (08:00)
[2020-12-23] MEDS: LIDOCAINE 4% PATCH TOP SCH (08:48)
[2020-12-23] MEDS: ASPIRIN EC 81 MG TAB PO SCH (08:49)
[2020-12-23] MEDS: MEGESTROL 40 MG TAB PO SCH ×2 (08:50→20:41)
[2020-12-23] MEDS: guaiFENesin 100 MG/5 ML UCUP PO PRN (08:57)
--- NOTE | 2020-12-23 10:21 | RAD REPORT ---
EXAM DESCRIPTION: RAD - Chest Single View - 12/23/2020 10:02 am CLINICAL HISTORY: increase coghing Chest pain. COMPARISON: Abdomen 1 View (KUB) dated 12/13/2020 FINDINGS: Portable technique limits examination quality. The lungs are grossly clear. The heart is upper limit of normal in size. No displaced fractures. IMPRESSION: No acute intrathoracic process suspected.
[2020-12-23 10:54] VITALS: O2SAT 98
[2020-12-23 15:45] LABS: Basophils % 0.3 % (0-1.3); Hematocrit 34.6 % (39.6-49.0); Lymphocytes % 5.8 % (15.3-44.8); MPV 9.9 fL (7.6-11.3); RBC Red Blood Cell Count 3.91 M/uL (4.33-5.43)
[2020-12-23 15:59] LABS: Potassium 4.3 mmol/L (3.5-5.1)
--- NOTE | 2020-12-23 16:56 | R.PN ---
PROGRESS NOTES ENCOUNTER DATE AND TIME: 12/23/2020 16:50 (CDT) NAME NIKHIL RICK DATE OF : 1945 DATE OF ADMISSION: 12/12/2020 17:59 (CDT) ACUTE ISCHEMIC RIGHT MCA STROKECHIEF COMPLAINT: Right MCA stroke, dense left arm and leg paresis, critical aortic stenosis. SUBJECTIVE: Pt denied any Shortness of Breath. Pt denied any depression. He is followed closely by cardiology and will have a cardiac cath next week. INR-1.32, WBC 7.4, Hgb 12.8, [place] [employer] 0.97, prealbumin 12.0, Na 134, COVID-19 negative. KUB shows no obstruction. Patient states that pain is under control. ECHO shows critical aortic stenosis and Cardiac Cath showed severe mid LAD stenosis. He will be trans ferred today for TARV and LAD stent by Dr. Kash Chavez. Bed mobility exercises done with the right upper extremity. Posterior propelled wheelchair 200' with resistance. VITAL SIGNS Temperature: 97.7 F SBP/DBP: 118/57 Pulse: 40 Resp: 16 MEDICATION ALLERGIES: No Known Drug Allergies (NKDA) ENVIRONMENTAL ALLERGIES: - Substance Allergies None Known - Other Allergies None Known NURSING: - Shower allowing shower - Bladder care per protocol - Skin care per protocol PRECAUTIONS: - Weight Bearing Precaution WBAT left LE ACTIVITIES OOB only with supervision THERAPIES: - Occupational Therapy Cognitive Retraining. Visual Perceptual Training. - Dietary and Nutrition Adequate Nutrition. Nutritional Education. Nutritional Supplements. - Speech Therapy Cognitive Training. Expressive Language Skills. Memory Strategies. Receptive Language Skills. Speech Intelligibility Training. PHYSICAL EXAM - Gen Alert and awake Lying in bed No apparent distress Oriented to: person, time, and place - Skin No breakdown Normacephalic - Eyes No abnormalities - ENMT No abnormalities - Neck No abnormalities - CVS RRR - Chest Clear - Abd Mild shifting right mid quadrant pain. No guarding or rebound. - GI Soft Deferred - No abnormalities - Ext Mild left upper and lower extremity edema. - MSK 0-1+/5 weakness in left upper and lower extremity. - Neuro 0-1/5 strength left upper and lower extremities. - Psych Mild depression. ASSESSMENT: Pt. is a 75 yo Right-handed male.On 12/05/2020 Pt. presented to [facility] with sudden onset of right-side weakness.On 12/05/2020 he was admitted to [facility] with diagnosis ACUTE ISCHEMIC RIGHT MCA STROKE.His impairment category is Stroke 01 - Right Body (Left Brain) (01.2).Pre-morbidly , Pt. was independent/mod-I in Locomotion, Safety Awareness, Self-Care, and Communication; and he had good Endurance and Social Cognition.Currently, he has deficits of Locomotion, Safety Awareness, [place] nce, Transfers Control, Sphincter Control, Self-Care, Communication, and Endurance.Pt. is now referre d to [facility] for acute in-patient rehabilitation in order to maximize patie nt's functional independence in activities of daily living, strength, ROM, and mobility.- Rehab Goal Patient has realistic goal of being discharged at assistance level 7-Ind to reside at Home with Pt s elf. MDM/PLAN: - Physical Therapy Gait dysfunction - to improve, our physical therapists will perform initial evaluation of pt's statu s upon admission and devise an individualized program for Gait Training, and Wheel Chair mobility Inability to transfer - to improve, our physical therapists will perform initial evaluation of pt's status upon admission and devise an individualized program for Bed mobility Need for home safety evaluation - to improve, our physical therapists will perform initial evaluatio n of pt's status upon admission and devise an individualized program for Home Evaluation Need in caregiver upon discharge - to improve, our physical therapists will perform initial evaluati on of pt's status upon admission and devise an individualized program for Caregiver Training New precaution - to improve, our physical therapists will perform initial evaluation of pt's status upon admission and devise an individualized program for Patient precaution education Edema - to improve, our physical therapists will perform initial evaluation of pt's status upon admi ssion and devise an individualized program for Elevation Training, and Lymphedema Therapy Poor balance - to improve, our physical therapists will perform initial evaluation of pt's status up on admission and devise an individualized program for Balance Training Poor endurance - to improve, our physical therapists will perform initial evaluation of pt's status upon admission and devise an individualized program for Endurance Training Weakness - to improve, our physical therapists will perform initial evaluation of pt's status upon a dmission and devise an individualized program for Aquatic Therapy, Neuromuscular Reeducation, and Str engthening Achieving independence - to improve, our physical therapists will perform initial evaluation of pt's status upon admission and devise an individualized program for Community Reintegration Activities - Occupational Therapy ADL deficits - to improve, our occupation therapists will perform initial evaluation of pt's status upon admission and devise an individualized program for Bathing, Bed mobility, Community Reintegratio n, Cooking, Dressing, Eating, Fine Motor Skills, Grooming, Homemaking, Kitchen Mobility, Laundry, Pat ient Education, Safety Awareness, Splinting - Positioning, Transfers(Toilet, Tub, Shower), and Wheel Chair Management Need for team primary care physician - to improve, our occupation therapists will perform initial evaluation of pt's status upon admission and devise an individualized program for Caregiver Training Weakness - to improve, our occupation therapists will perform initial evaluation of pt's status upon admission and devise an individualized program for Aquatic Therapy, Balance, Endurance, UE ROM, and UE strengthening - Other See attached MAR (Medication Administration Record) - Diet Type Continue Regular - Diet - Liquid Texture Continue Regular - Tube Feed Continue N/A - Bladder care per protocol - Weight Bearing Precaution WBAT left LE WBAT left wrist - Skin care per protocol - Diet - Solid Texture Continue Regular - Shower allowing shower for Dementia, TBI, Stroke, or others FUNCTIONAL STATUS: UPDATED AT WEEKLY TEAM CONFERENCE - Bladder Same accident frequency: 7-Ind - No accidents in the past 7 days - Bowel Same accident frequency: 7-Ind - No accidents in the past 7 days - Walking Same score based on distance walked: 0(N/A) - Wheelchair Same score based on distance traveled: 0(N/A) FUNCTIONAL STATUS: - Self-Care A. Eating sup B. Grooming Nakia C. Bathing modA D. Dressing - Upper modA E. Dressing - Lower modA F. Toileting maxA - Sphincter Control G. Bladder control Nakia H. Bowel control Nakia - Transfers Control I. Bed/Chair/Wheelchair maxA J. Toilet maxA K. Tub/Shower maxA - Locomotion L. Walk/Wheelchair (B) maxA M. Stairs ADNO - Communication N. Comprehension (B) sup O. Expression (B) sup - Social Cognition P. Social Interaction sup Q. Problem Solving sup R. Memory sup - Endurance Poor - Balance Poor - Safety Awareness Poor QI SCORES: - Self-Care A. Eating 03-Partial/moderate assistance B. Oral hygiene 03-Partial/moderate assistance C. Toileting hygiene 02-Substantial/maximal assistance E. Shower/bathe self 02-Substantial/maximal assistance F. Upper body dressing 03-Partial/moderate assistance G. Lower body dressing 02-Substantial/maximal assistance H. Putting on/taking off footwear 88-Not attempted due to medical condition or safety concerns - Mobility A. Roll left and right 03-Partial/moderate assistance B. Sit to lying 03-Partial/moderate assistance C. Lying to sitting on side of bed 02-Substantial/maximal assistance D. Sit to stand 02-Substantial/maximal assistance E. Chair/gup-sy-rcsbw transfer 02-Substantial/maximal assistance F. Toilet transfer 02-Substantial/maximal assistance G. Car transfer 88-Not attempted due to medical condition or safety concerns I. Walk 10 feet 88-Not attempted due to medical condition or safety concerns J. Walk 50 feet with two turns 88-Not attempted due to medical condition or safety concerns K. Walk 150 feet 88-Not attempted due to medical condition or safety concerns L. Walking 10 feet on uneven surfaces 88-Not attempted due to medical condition or safety concerns M. 1 step (curb) 88-Not attempted due to medical condition or safety concerns N. 4 steps 88-Not attempted due to medical condition or safety concerns O. 12 steps 88-Not attempted due to medical condition or safety concerns P. Picking up object 88-Not attempted due to medical condition or safety concerns R. Wheel 50 feet with two turns 88-Not attempted due to medical condition or safety concerns S. Wheel 150 feet 88-Not attempted due to medical condition or safety concerns - Bladder and Bowel Bladder continence Bowel continence - Endurance Fair - Balance Fair - Safety Awareness Fair [facility] DEFICITS: Self-Care, Mobility, Endurance, Balance, and Safety Awareness SIGNATURE PANEL: (CDT)
[2020-12-23 17:35] LABS: Blood Morphology Comment NOT SEEN (NOT SEEN); Platelet Estimate ADEQ; White Blood Cell Scan OK (OK)
[2020-12-23] MEDS: ENOXAPARIN 40 MG/0.4 ML SQ SCH (20:41)
[2020-12-23] MEDS: ATORVASTATIN 40 MG TAB PO SCH (20:41)
[2020-12-23] MEDS: DULOXETINE 20 MG CAP PO SCH (20:41)
[2020-12-23] MEDS: MELATONIN 3 MG TABLET PO PRN (20:42)
[2020-12-24] MEDS: guaiFENesin 100 MG/5 ML UCUP PO PRN (06:51)
[2020-12-24] MEDS: ASPIRIN EC 81 MG TAB PO SCH (06:54)
[2020-12-24] MEDS: LIDOCAINE 4% PATCH TOP SCH (06:54)
[2020-12-24] MEDS: MEGESTROL 40 MG TAB PO SCH (06:54)
[2020-12-24 07:19] VITALS: BP 99/56; TEMP 97.7
[2020-12-24 07:47] LABS: Absolute Lymphocytes (CBC) 1.1 K/uL (0.7-4.9); Basophils % 0.5 % (0-1.3); Hematocrit 33.7 % (39.6-49.0); Lymphocytes % 9.9 % (15.3-44.8); MPV 9.7 fL (7.6-11.3); Potassium 4.2 mmol/L (3.5-5.1); RBC Red Blood Cell Count 3.86 M/uL (4.33-5.43)
[2020-12-24] MEDS: SIMETHICONE 80 MG TAB PO PRN (11:59)
[2020-12-24] MEDS ORDERED: D5 0.45 NS 1,000 ML IV SCH (12:00)
--- NOTE | 2020-12-24 17:28 | R.PN ---
PROGRESS NOTES ENCOUNTER DATE AND TIME: 12/24/2020 17:21 (CDT) NAME NIKHIL RICK DATE OF : 1945 DATE OF ADMISSION: 12/12/2020 17:59 (CDT) ACUTE ISCHEMIC RIGHT MCA STROKECHIEF COMPLAINT: Right MCA stroke, dense left arm and leg paresis, critical aortic stenosis. SUBJECTIVE: Pt denied any Shortness of Breath. Pt denied any depression. He is followed closely by cardiology and will have a cardiac cath next week. INR-1.32, WBC 11.1, Hgb 11.2, Upper Tier 1.03, prealbumin 12.0, Na 133, COVID-19 negative. KUB shows no obstruction. Patient states that pain is under control. ECHO shows critical aortic stenosis and Cardiac Cath showed severe mid LAD stenosis. He will be trans ferred today for TARV and LAD stent by Dr. Kash Chavez. No bed mobility exercises done due to severe bradycardia. He will be transferred to the acute care [facility] for telemetry monitoring prior to having his cardiac stent and TARV procedure. VITAL SIGNS Temperature: 98.2 F SBP/DBP: 129/49 Pulse: 43 Resp: 15 MEDICATION ALLERGIES: No Known Drug Allergies (NKDA) ENVIRONMENTAL ALLERGIES: - Substance Allergies None Known - Other Allergies None Known NURSING: - Shower allowing shower - Bladder care per protocol - Skin care per protocol PRECAUTIONS: - Weight Bearing Precaution WBAT left LE ACTIVITIES OOB only with supervision THERAPIES: - Occupational Therapy Cognitive Retraining. Visual Perceptual Training. - Dietary and Nutrition Adequate Nutrition. Nutritional Education. Nutritional Supplements. - Speech Therapy Cognitive Training. Expressive Language Skills. Memory Strategies. Receptive Language Skills. Speech Intelligibility Training. PHYSICAL EXAM - Gen Alert and awake Lying in bed No apparent distress Oriented to: person, time, and place - Skin No breakdown Normacephalic - Eyes No abnormalities - ENMT No abnormalities - Neck No abnormalities - CVS RRR - Chest Clear - Abd Mild shifting right mid quadrant pain. No guarding or rebound. - GI Soft Deferred - No abnormalities - Ext Mild left upper and lower extremity edema. - MSK 0-1+/5 weakness in left upper and lower extremity. - Neuro 0-1/5 strength left upper and lower extremities. - Psych Mild depression. ASSESSMENT: Pt. is a 75 yo Right-handed male.On 12/05/2020 Pt. presented to [facility] with sudden onset of right-side weakness.On 12/05/2020 he was admitted to [facility] with diagnosis ACUTE ISCHEMIC RIGHT MCA STROKE.His impairment category is Stroke 01 - Right Body (Left Brain) (01.2).Pre-morbidly , Pt. was independent/mod-I in Locomotion, Safety Awareness, Self-Care, and Communication; and he had good Endurance and Social Cognition.Currently, he has deficits of Locomotion, Safety Awareness, Stew nce, Transfers Control, Sphincter Control, Self-Care, Communication, and Endurance.Pt. is now referre d to [facility] for acute in-patient rehabilitation in order to maximize patie nt's functional independence in activities of daily living, strength, ROM, and mobility.- Rehab Goal Patient has realistic goal of being discharged at assistance level 7-Ind to reside at Home with Pt s elf. MDM/PLAN: - Physical Therapy Gait dysfunction - to improve, our physical therapists will perform initial evaluation of pt's statu s upon admission and devise an individualized program for Gait Training, and Wheel Chair mobility Inability to transfer - to improve, our physical therapists will perform initial evaluation of pt's status upon admission and devise an individualized program for Bed mobility Need for home safety evaluation - to improve, our physical therapists will perform initial evaluatio n of pt's status upon admission and devise an individualized program for Home Evaluation Need in caregiver upon discharge - to improve, our physical therapists will perform initial evaluati on of pt's status upon admission and devise an individualized program for Caregiver Training New precaution - to improve, our physical therapists will perform initial evaluation of pt's status upon admission and devise an individualized program for Patient precaution education Edema - to improve, our physical therapists will perform initial evaluation of pt's status upon admi ssion and devise an individualized program for Elevation Training, and Lymphedema Therapy Poor balance - to improve, our physical therapists will perform initial evaluation of pt's status up on admission and devise an individualized program for Balance Training Poor endurance - to improve, our physical therapists will perform initial evaluation of pt's status upon admission and devise an individualized program for Endurance Training Weakness - to improve, our physical therapists will perform initial evaluation of pt's status upon a dmission and devise an individualized program for Aquatic Therapy, Neuromuscular Reeducation, and Str engthening Achieving independence - to improve, our physical therapists will perform initial evaluation of pt's status upon admission and devise an individualized program for Community Reintegration Activities - Occupational Therapy ADL deficits - to improve, our occupation therapists will perform initial evaluation of pt's status upon admission and devise an individualized program for Bathing, Bed mobility, Community Reintegratio n, Cooking, Dressing, Eating, Fine Motor Skills, Grooming, Homemaking, Kitchen Mobility, Laundry, Pat ient Education, Safety Awareness, Splinting - Positioning, Transfers(Toilet, Tub, Shower), and Wheel Chair Management Need for director of home care hospice - to improve, our occupation therapists will perform initial evaluation of pt's status upon admission and devise an individualized program for Caregiver Training Weakness - to improve, our occupation therapists will perform initial evaluation of pt's status upon admission and devise an individualized program for Aquatic Therapy, Balance, Endurance, UE ROM, and UE strengthening - Other See attached MAR (Medication Administration Record) - Diet Type Continue Regular - Diet - Liquid Texture Continue Regular - Tube Feed Continue N/A - Bladder care per protocol - Weight Bearing Precaution WBAT left LE WBAT left wrist - Skin care per protocol - Diet - Solid Texture Continue Regular - Shower allowing shower for Dementia, TBI, Stroke, or others FUNCTIONAL STATUS: UPDATED AT WEEKLY TEAM CONFERENCE - Bladder Same accident frequency: 7-Ind - No accidents in the past 7 days - Bowel Same accident frequency: 7-Ind - No accidents in the past 7 days - Walking Same score based on distance walked: 0(N/A) - Wheelchair Same score based on distance traveled: 0(N/A) FUNCTIONAL STATUS: - Self-Care A. Eating sup B. Grooming Nakia C. Bathing modA D. Dressing - Upper modA E. Dressing - Lower modA F. Toileting maxA - Sphincter Control G. Bladder control Nakia H. Bowel control Nakia - Transfers Control I. Bed/Chair/Wheelchair maxA J. Toilet maxA K. Tub/Shower maxA - Locomotion L. Walk/Wheelchair (B) maxA M. Stairs ADNO - Communication N. Comprehension (B) sup O. Expression (B) sup - Social Cognition P. Social Interaction sup Q. Problem Solving sup R. Memory sup - Endurance Poor - Balance Poor - Safety Awareness Poor QI SCORES: - Self-Care A. Eating 03-Partial/moderate assistance B. Oral hygiene 03-Partial/moderate assistance C. Toileting hygiene 02-Substantial/maximal assistance E. Shower/bathe self 02-Substantial/maximal assistance F. Upper body dressing 03-Partial/moderate assistance G. Lower body dressing 02-Substantial/maximal assistance H. Putting on/taking off footwear 88-Not attempted due to medical condition or safety concerns - Mobility A. Roll left and right 03-Partial/moderate assistance B. Sit to lying 03-Partial/moderate assistance C. Lying to sitting on side of bed 02-Substantial/maximal assistance D. Sit to stand 02-Substantial/maximal assistance E. Chair/nav-sp-uhokn transfer 02-Substantial/maximal assistance F. Toilet transfer 02-Substantial/maximal assistance G. Car transfer 88-Not attempted due to medical condition or safety concerns I. Walk 10 feet 88-Not attempted due to medical condition or safety concerns J. Walk 50 feet with two turns 88-Not attempted due to medical condition or safety concerns K. Walk 150 feet 88-Not attempted due to medical condition or safety concerns L. Walking 10 feet on uneven surfaces 88-Not attempted due to medical condition or safety concerns M. 1 step (curb) 88-Not attempted due to medical condition or safety concerns N. 4 steps 88-Not attempted due to medical condition or safety concerns O. 12 steps 88-Not attempted due to medical condition or safety concerns P. Picking up object 88-Not attempted due to medical condition or safety concerns R. Wheel 50 feet with two turns 88-Not attempted due to medical condition or safety concerns S. Wheel 150 feet 88-Not attempted due to medical condition or safety concerns - Bladder and Bowel Bladder continence Bowel continence - Endurance Fair - Balance Fair - Safety Awareness Fair [facility] DEFICITS: Self-Care, Mobility, Endurance, Balance, and Safety Awareness SIGNATURE PANEL: (CDT)
== END 2020-12-24 13:27 | disposition short-term general hospital (02) | DRG 57 ==
LOC: 5TH 12-12 17:59
PROVIDERS: ADMIT Psychiatry & Neurology Neurology with Special Qualifications in Child Neurology; ATTEND Psychiatry & Neurology Neurology with Special Qualifications in Child Neurology
PROC: 4A023N7 Measurement of Cardiac Sampling and Pressure, Left Heart, Percutaneous Approach (ICD-10-PCS; principal; 2020-12-16)
PROC: B2111ZZ Fluoroscopy of Multiple Coronary Arteries using Low Osmolar Contrast (ICD-10-PCS; 2020-12-16)
DX: I69.351 Hemiplegia and hemiparesis following cerebral infarction affecting right dominant side (principal); I35.0 Nonrheumatic aortic (valve) stenosis; R00.1 Bradycardia, unspecified; Z20.822 Contact with and (suspected) exposure to COVID-19
CPT/HCPCS: 36415; 71045; 74018; 80048; 82040; 82947; 83735; 84134; 85025; 85610; 85730; 92523; 92610; 93005; 93306; 93454; 97110; 97112; 97116; 97161; 97530; 97542; C1893; J1644; J1650; J2250; J3010; J7040; J7799; U0003

== ENCOUNTER 2020-12-24 13:13 | Inpatient (IN) | payer OTHER ==
[2020-12-24] MEDS ORDERED: ONDANSETRON 4 MG/2 ML VIAL IV PRN (13:23)
[2020-12-24] MEDS ORDERED: MELATONIN 3 MG TABLET PO PRN (13:26)
[2020-12-24] MEDS ORDERED: NA CHLORIDE 0.9% 1,000 ML IV SCH (14:00)
[2020-12-24 14:26] VITALS: BMI 39.4
[2020-12-24] MEDS ORDERED: SIMETHICONE 80 MG TAB PO PRN (15:25)
[2020-12-24] MEDS ORDERED: guaiFENesin 100 MG/5 ML UCUP PO PRN (15:28)
[2020-12-24] MEDS ORDERED: SENOSIDES 8.6 MG TAB PO PRN (15:29)
[2020-12-24] MEDS: ENOXAPARIN 40 MG/0.4 ML SQ SCH (20:39)
[2020-12-24] MEDS: MORPHINE 2 MG/ML SYR IV PRN (20:40)
[2020-12-24] MEDS: ATORVASTATIN 40 MG TAB PO SCH (20:40)
[2020-12-25 04:22] LABS: Absolute Lymphocytes (CBC) 1.3 K/uL (0.7-4.9); Basophils % 0.5 % (0-1.3); Hematocrit 31.3 % (39.6-49.0); Lymphocytes % 10.1 % (15.3-44.8); MPV 10.2 fL (7.6-11.3); RBC Red Blood Cell Count 3.63 M/uL (4.33-5.43)
[2020-12-25 04:42] LABS: Bilirubin Total 0.8 mg/dL (0.2-1.0); Potassium 4.1 mmol/L (3.5-5.1); Protein, Total 6.5 g/dL (6.4-8.2)
[2020-12-25] MEDS: DULOXETINE 20 MG CAP PO SCH (08:01)
[2020-12-25] MEDS: ASPIRIN EC 81 MG TAB PO SCH (08:01)
[2020-12-25] MEDS ORDERED: lisinopriL 10 MG TAB PO SCH (09:00)
[2020-12-25] MEDS: MORPHINE 2 MG/ML SYR IV PRN (09:05)
--- NOTE | 2020-12-25 09:40 | P.HP ---
Certification for Inpatient Patient admitted to: Inpatient With expected LOS: >2 Midnights Patient will require the following post-hospital care: None Practitioner: I am a practitioner with admitting privileges, knowledge of patient current condition, hospital course, and medical plan of care. Services: Services provided to patient in accordance with Admission requirements found in Title 42 Section 412.3 of the Code of Federal Regulations Patient History Date of Service: 12/24/20 Reason for admission: Bradyarrhythmia History of Present Illness: Patient is a 75-year-old gentleman who recently had a stroke and was in rehab for therapy. However, while patient has been at rehab patient's heart rate has been in the 40s and 50s. Patient has severe aortic stenosis and needs to be transferred to [facility] for a TAVR procedure. patient was brought down to the medical-surgical floor to be monitored on telemetry. Patient will also need a cardiac catheterization. There were waiting to delay this until patient recovered a little bit better from T's CVA; however because patient's clinical symptoms and therapy or not really improving because of the shortness of breath. Decision was made to go ahead and proceed with intervention. Allergies No Known Allergies Allergy (Verified 12/12/20 18:13) Home Medications: Aspirin [Aspirin EC] 81 mg PO DAILY 12/12/20 Atorvastatin Calcium [Lipitor] 40 mg PO BEDTIME 12/12/20 Melatonin [Melatin] 3 mg PO BEDTIME PRN 12/12/20 lisinopriL [Lisinopril] 5 mg PO DAILY 12/12/20 - Past Medical/Surgical History Has patient received pneumonia vaccine in the past: No Diabetic: No -: History of CVA -: History of hypertension -: History of dyslipidemia Past Surgical History: Patient denies surgical history - Family History Father Family History: Reviewed- Non-Contributory - Social History Smoking Status: Never smoker Alcohol use: No CD- Drugs: No Caffeine use: No Place of Residence: Home Review of Systems 10-point ROS is otherwise unremarkable Physical Examination - Vital Signs Temperature: 99.6 F Blood Pressure: 109/66 Pulse: 47 Respirations: 20 Pulse Ox (%): 93 - Physical Exam General: Alert, In no apparent distress, Oriented x3, Other (Patient answers most of my questions appropriately but does have some aphasia) HEENT: Atraumatic, PERRLA, Mucous membr. moist/pink, EOMI, Sclerae nonicteric Neck: Supple, 2+ carotid pulse no bruit, No LAD, Without JVD or thyroid abnormality Respiratory: Clear to auscultation bilaterally, Normal air movement Cardiovascular: Regular rate/rhythm, Normal S1 S2 Gastrointestinal: Normal bowel sounds, Soft and benign, Non-distended, No tenderness Musculoskeletal: No clubbing, No swelling, No tenderness Integumentary: No rashes Neurological: Normal affect, Abnormal gait, Abnormal speech, Abnormal strength Lymphatics: No axilla or inguinal lymphadenopathy - Studies Laboratory Data (last 24 hrs) 12/25/20 04:01: Sodium 133 L, Potassium 4.1, BUN 25 H, Creatinine 0.97, Glucose 112 H, Total Bilirubin 0.8, AST 33, ALT 62, Alkaline Phosphatase 62 12/25/20 04:01: WBC 13.20 H D, Hgb 10.9 L, Hct 31.3 L, Plt Count 154 Assessment & Plan - Problems (Diagnosis) (1) History of CVA (cerebrovascular accident) Current Visit: Yes Status: Acute (2) History of aortic stenosis Current Visit: Yes Status: Acute (3) Bradyarrhythmia Current Visit: Yes Status: Acute (4) Shortness of breath Current Visit: Yes Status: Acute (5) History of hypertension Current Visit: Yes Status: Acute - Plan Plan: 1. Patient preparing for transfer to [facility] for TAVR 2. Cardiology consultation 3. Strict blood pressure control 4. Continue with physical therapy as tolerated 5. Continue with anti-platelet and statin therapy for CVA treatment 6. Hold off on any beta-wali therapy or calcium channel wali therapy because of bradyarrhythmia 7. GI and DVT prophylaxis Discharge Plan: Home Plan to discharge in: Greater than 2 days - Advance Directives Does patient have a Living Will: No Does patient have a Durable POA for Healthcare: No - Code Status/Comfort Care Code Status Assessed: Yes Code Status: Full Code Critical Care: No Time Spent Managing PTS Care (In Minutes): 45
[2020-12-25] MEDS: NA CHLORIDE 0.9% 1,000 ML IV SCH ×2 (12:32→17:19)
[2020-12-25] MEDS: ENSURE HIGH PROTEIN 237 ML CAN PO SCH (17:19)
[2020-12-25] MEDS: ATORVASTATIN 40 MG TAB PO SCH (20:59)
[2020-12-25] MEDS: ENOXAPARIN 40 MG/0.4 ML SQ SCH (20:59)
[2020-12-26] MEDS: ACETAMINOPHEN 500 MG TAB PO PRN ×2 (00:04→08:06)
[2020-12-26] MEDS: MORPHINE 2 MG/ML SYR IV PRN ×2 (05:15→09:15)
[2020-12-26] MEDS: NA CHLORIDE 0.9% 1,000 ML IV SCH (05:24)
[2020-12-26] MEDS: DULOXETINE 20 MG CAP PO SCH (08:06)
[2020-12-26] MEDS: ASPIRIN EC 81 MG TAB PO SCH (08:06)
[2020-12-26] MEDS: ENSURE HIGH PROTEIN 237 ML CAN PO SCH ×2 (08:07→11:20)
[2020-12-26] MEDS ORDERED: ALPRAZOLAM 0.25 MG TABLET PO ONE (09:33)
[2020-12-26] MEDS ORDERED: HYDROCORTISONE SUC 100 MG INJ IV ONE (09:34)
--- NOTE | 2020-12-26 10:41 | PN ---
Date of Progress Note: 12/25/2020 We have been following Mr. Camacho intermittently on rehab because of severe aortic stenosis, severe co ronary artery disease, status post stroke. He is unable to get rehab now because of severe chest silva n and borderline hypotension with any exertion. The case was discussed with the family, discussed wi th Dr. Chavez, and the patient is getting where he cannot wait too long for a TAVR and a stent to the LAD. The case was discussed with Dr. Oc Elizabeth at [facility] in [place]. We have been trying t o transfer him to [facility], but there has been no bed available. I think this is rather urgent. refer the patient to [facility], Dr. Oc Elizabeth and Dr. Zeyad Talbert. I will se e him up for coronary intervention and TAVR in the future. He is presently on no cardiac meds. He i s on aspirin. He is intolerant to beta-blockers because of severe bradycardia, intolerant to lisinop ril because of hypotension. Case was discussed with Dr. Elizabeth and he is aware of all that. RADHA/LYLA Voice ID: [id number] Report ID: [id number]
--- NOTE | 2020-12-26 12:02 | RAD REPORT ---
EXAM DESCRIPTION: RAD - Chest Single View - 12/26/2020 11:44 am CLINICAL HISTORY: difficulty breathing COMPARISON: Portable December 23 TECHNIQUE: AP portable chest image was obtained 12/26/2020 11:44 am . FINDINGS: Lung volumes are very low accentuating interstitial pattern. Patient does have increased i nterstitial and alveolar opacities that are present in excess of low lung volume artifact. Heart size is prominent but stable. Central vasculature is increased in prominence. No pneumothorax or large pl eural effusion. Loop recorder overlies the lower left chest. No acute bony abnormality seen. No acute aortic findings suspected. IMPRESSION: Vasculature and lung markings have increased suggesting failure or volume overload.
[2020-12-26 12:03] VITALS: BP 115/64; TEMP 97.5
[2020-12-26 12:03] LABS: Absolute Lymphocytes (CBC) 0.8 K/uL (0.7-4.9); Basophils % 1.1 % (0-1.3); Hematocrit 34.3 % (39.6-49.0); Lymphocytes % 5.3 % (15.3-44.8); MPV 10.8 fL (7.6-11.3); RBC Red Blood Cell Count 3.87 M/uL (4.33-5.43)
[2020-12-26 12:13] LABS: Albumin 2.1 g/dL (3.4-5.0); Bilirubin Total 1.2 mg/dL (0.2-1.0); Magnesium 2.2 mg/dL (1.8-2.4); Potassium 4.1 mmol/L (3.5-5.1); Protein, Total 6.8 g/dL (6.4-8.2); Troponin I 0.14 ng/mL (0.0-0.045)
[2020-12-26] MEDS ORDERED: MORPHINE 2 MG/ML SYR ONE (13:09)
[2020-12-26 13:26] LABS: Blood Morphology Comment NOT SEEN (NOT SEEN); Platelet Estimate ADEQ; White Blood Cell Scan OK (OK)
[2020-12-26] MEDS ORDERED: HEPA 1000U/500MLS 1,000 UNIT/500 ML BAG IV ONE (13:44)
[2020-12-26] MEDS ORDERED: LIDOCAINE 1% 20 ML MDV ONE (13:44)
[2020-12-26] MEDS ORDERED: ATROPINE SULF 1 MG/10 ML SYR IV ONE (13:44)
--- NOTE | 2020-12-26 14:49 | RAD REPORT ---
EXAM DESCRIPTION: RAD - Chest Single View - 12/26/2020 2:40 pm CLINICAL HISTORY: s/p transvenous pacemaker Chest pain. COMPARISON: Chest Single View dated 12/26/2020; Chest Single View dated 12/23/2020; Abdomen 1 View ([facility]) dated 12/13/2020 FINDINGS: Portable technique limits examination quality. Mild interstitial pulmonary edema. No pneumothorax evident. The heart is mildly prominent size with a tortuous thoracic aorta. Extensive wiring is seen projecting over the mediastinum.
[2020-12-26] MEDS ORDERED: FENTANYL CITR 100 MCG/2 ML ONE (15:01)
[2020-12-26] MEDS ORDERED: MIDAZOLAM HCL 2 MG/2 ML INJ ONE (15:01)
--- NOTE | 2020-12-26 15:26 | OP ---
Date of Procedure: 12/26/2020 Surgeon: NIMESH SOLO Procedure Performed: Bedside transvenous pacemaker wire insertion. Access: Right IJ 6-Ugandan. Indication: Complete heart block, symptomatic. Description Of Procedure: After risks, benefits, and alternatives were explained, the patient agreed to the procedure and the family signed the consent. The area of the right IJ was prepped and draped in sterile fashion. Then, using a micropuncture kit, we accessed right IJ with ultrasound guidance, placed a 6-Ugandan sheath and then took the pacemaker wire into the RV successfully without complicat ions and then the pacemaker wire was secured in place. /LYLA Voice ID: [id number] Report ID: [id number]
--- NOTE | 2020-12-26 17:39 | P.PN ---
Subjective Date of Service: 12/25/20 Patient having some low back pain according to patient's son who was at bedside. Still awaiting transfer. Cardiology also arranging for transfer to [facility]. Review of Systems 10-point ROS is otherwise unremarkable Physical Examination - Vital Signs Temperature: 97.5 F Blood Pressure: 115/64 Pulse: 50 Respirations: 23 Pulse Ox (%): 95 - Physical Exam General: Alert, In no apparent distress, Oriented x3 Respiratory: Clear to auscultation bilaterally, Normal air movement Cardiovascular: Regular rate/rhythm, Normal S1 S2, No murmurs, Systolic murmur Gastrointestinal: Normal bowel sounds, Soft and benign, Non-distended, No tenderness Musculoskeletal: No clubbing, No swelling Neurological: Sensation intact, Cranial nerves 3-12 intact - Studies Laboratory Data (last 24 hrs) 12/26/20 11:40: Sodium 134 L, Potassium 4.1, BUN 26 H, Creatinine 0.88, Glucose 130 H, Magnesium 2.2, Total Bilirubin 1.2 H, AST 29, ALT 51, Alkaline Phosphatase 69, Troponin I 0.14 H 12/26/20 11:40: WBC 14.70 H, Hgb 11.3 L, Hct 34.3 L, Plt Count 184 Medications List Reviewed: Yes Assessment & Plan - Problems (Diagnosis) (1) History of CVA (cerebrovascular accident) Current Visit: Yes Status: Acute (2) History of aortic stenosis Current Visit: Yes Status: Acute (3) Bradyarrhythmia Current Visit: Yes Status: Acute (4) Shortness of breath Current Visit: Yes Status: Acute (5) History of hypertension Current Visit: Yes Status: Acute - Plan Plan: 1. Awaiting transfer to a tertiary care facility. 2. Cardiology consultation appreciated 3. Strict blood pressure control 4. Continue with physical therapy as tolerated 5. Continue with anti-platelet and statin therapy for CVA treatment 6. Hold off on any beta-wali therapy or calcium channel wali therapy because of bradyarrhythmia 7. GI and DVT prophylaxis Discharge Plan: Other Plan to discharge in: 24 Hours - Advance Directives Does patient have a Living Will: No Does patient have a Durable POA for Healthcare: No - Code Status/Comfort Care Code Status: Full Code Critical Care: No Time Spent Managing PTS Care (In Minutes): 40
--- NOTE | 2020-12-26 17:40 | P.DS ---
Discharge Date: 12/26/20 Disposition: TRANSFER TO [facility] Discharge Condition: GOOD Reason for Admission: Bradyarrhythmia Consultations: Cardiology - Problems (1) History of CVA (cerebrovascular accident) Current Visit: Yes Status: Acute (2) History of aortic stenosis Current Visit: Yes Status: Acute (3) Bradyarrhythmia Current Visit: Yes Status: Acute (4) Shortness of breath Current Visit: Yes Status: Acute (5) History of hypertension Current Visit: Yes Status: Acute Brief History of Present Illness: Patient is a 75-year-old gentleman who recently had a stroke and was in rehab for therapy. However, while patient has been at rehab patient's heart rate has been in the 40s and 50s. Patient has severe aortic stenosis and needs to be transferred to [facility] for a TAVR procedure. patient was brought down to the medical-surgical floor to be monitored on telemetry. Patient will also need a cardiac catheterization. There were waiting to delay this until patient recovered a little bit better from T's CVA; however because patient's clinical symptoms and therapy or not really improving because of the shortness of breath. Decision was made to go ahead and proceed with intervention. Vital Signs/Physical Exam: Temp Pulse Resp BP Pulse Ox 97.5 F 50 23 H 115/64 95 12/26/20 17:39 12/26/20 17:39 12/26/20 17:39 12/26/20 17:39 12/26/20 17:39 General: Alert, In no apparent distress, Oriented x3 Laboratory Data at Discharge: WBC 14.70 K/uL (4.3-10.9) H 12/26/20 11:40 Hgb 11.3 g/dL (13.6-17.9) L 12/26/20 11:40 Hct 34.3 % (39.6-49.0) L 12/26/20 11:40 Plt Count 184 K/uL (152-406) 12/26/20 11:40 Sodium 134 mmol/L (136-145) L 12/26/20 11:40 Potassium 4.1 mmol/L (3.5-5.1) 12/26/20 11:40 BUN 26 mg/dL (7-18) H 12/26/20 11:40 Creatinine 0.88 mg/dL (0.55-1.3) 12/26/20 11:40 Glucose 130 mg/dL (74-106) H 12/26/20 11:40 Magnesium 2.2 mg/dL (1.8-2.4) 12/26/20 11:40 Total Bilirubin 1.2 mg/dL (0.2-1.0) H 12/26/20 11:40 AST 29 U/L (15-37) 12/26/20 11:40 ALT 51 U/L (12-78) 12/26/20 11:40 Alkaline Phosphatase 69 U/L (45-117) 12/26/20 11:40 Troponin I 0.14 ng/mL (0.0-0.045) H 12/26/20 11:40 Home Medications: Aspirin [Aspirin EC] 81 mg PO DAILY 12/12/20 Atorvastatin Calcium [Lipitor] 40 mg PO BEDTIME 12/12/20 Melatonin [Melatin] 3 mg PO BEDTIME PRN 12/12/20 lisinopriL [Lisinopril] 5 mg PO DAILY 12/12/20
--- NOTE | 2020-12-28 09:47 | EKG ---
Test Date: 2020-12-26 Test Time: 12:33:36 Exchange Operator: SENIA MEASUREMENT RESULTS: Intervals: Rate: 41 AK: QRSD: 150 QT: 618 QTc: 509 [place]: P: 34 AK: QRS: -52 T: 127 INTERPRETIVE STATEMENTS: Undetermined rhythm Left axis deviation Left bundle branch block Abnormal ECG Compared to ECG 12/26/2020 12:33:10 No significant changes Electronically Signed On 12-28-20 09:44:01 CDT by Danilo Daniels
--- NOTE | 2020-12-28 09:47 | EKG ---
Test Date: 2020-12-26 Test Time: 12:34:07 Edging Machine Catcher: SENIA MEASUREMENT RESULTS: Intervals: Rate: 50 DE: QRSD: 160 QT: 618 QTc: 563 [place]: P: 42 DE: QRS: -51 T: 109 INTERPRETIVE STATEMENTS: Sinus rhythm with complete heart block and Wide QRS rhythm with occasional premature ventricular complexes Left axis deviation Left bundle branch block Abnormal ECG Compared to ECG 12/26/2020 12:33:36 Uncertain supraventricular rhythm now present Ventricular premature complex(es) now present AV block, complete (third-degree) now present Electronically Signed On 12-28-20 09:44:01 CDT by Danilo Daniels
--- NOTE | 2020-12-28 09:48 | EKG ---
Test Date: 2020-12-26 Test Time: 12:33:10 Brass Pickler: SENIA MEASUREMENT RESULTS: Intervals: Rate: 54 FL: QRSD: 156 QT: 610 QTc: 578 [place]: P: 36 FL: QRS: -49 T: 110 INTERPRETIVE STATEMENTS: Undetermined rhythm Left axis deviation Left bundle branch block Abnormal ECG Compared to ECG 12/21/2020 08:37:10 No significant changes Electronically Signed On 12-28-20 09:44:02 CDT by Danilo Daniels
--- NOTE | 2020-12-30 07:36 | PN ---
Date of Progress Note: 12/23/2020 He was admitted for rehab post CVA and severe aortic stenosis, severe coronary disease. Continues to have some chest pain and dyspnea on exertion with minimal exertion, very difficult to do rehab. The case was discussed with the family. I think that may be best to move him to the regular floor and a ttempt to transfer him to [facility] for earlier intervention than we hope. He is bradycardic. He is o ff lisinopril because of borderline hypotension. May need a pacemaker down the road as well. Contin ue present regimen for now. NB/MODL Voice ID: [id number] Report ID: [id number]
== END 2020-12-26 14:45 | disposition short-term general hospital (02) | DRG 307 ==
LOC: 2ND 13:13 → ERHOLD 12-26 13:00
PROVIDERS: ADMIT Hospitalist; ATTEND Hospitalist
PROC: 4B02XSZ Measurement of Cardiac Pacemaker, External Approach (ICD-10-PCS; principal; 2020-12-26)
DX: I35.0 Nonrheumatic aortic (valve) stenosis (principal); R47.01 Aphasia; E78.5 Hyperlipidemia, unspecified; I49.8 Other specified cardiac arrhythmias; I25.10 Atherosclerotic heart disease of native coronary artery without angina pectoris; I10 Essential (primary) hypertension; Z86.73 Personal history of transient ischemic attack (TIA), and cerebral infarction without residual deficits; Z79.82 Long term (current) use of aspirin; Z79.899 Other long term (current) drug therapy; Z20.822 Contact with and (suspected) exposure to COVID-19
CPT/HCPCS: 33210; 36415; 71045; 80053; 82947; 83735; 83880; 84145; 84484; 85025; 93005; C1893; J1644; J1650; J1720; J2250; J2270; J2405; J3010; J7030